=== PATIENT | female | born 1970 | race American Indian/Alaskan Native ===

== ENCOUNTER 2016-06-08 21:31 | Inpatient (IN) | payer MEDICARE ==
[2016-06-08] MEDS ORDERED: ADRENALIN ONE (21:32)
[2016-06-08] MEDS ORDERED: PROVENTIL IH ONE (21:38)
[2016-06-08] MEDS ORDERED: ATROVENT IH ONE (21:39)
[2016-06-08] MEDS ORDERED: ADRENALIN SUB-Q ONE (21:40)
[2016-06-08] MEDS ORDERED: MAGNESIUM SULFATE 2GM/50ML 2 GM in D5W 100 ML IV ONE ×2 (21:40→23:00)
[2016-06-08] MEDS ORDERED: NACL 0.9% 1000 ML 1,000 ML IV ONE (21:41)
--- NOTE | 2016-06-08 21:43 | Emergency Department Report ---
ED General Adult HPI - General Chief complaint: Dyspnea/Respdistress Stated complaint: RESPIRATORY DISTRESS Time Seen by Provider: 06/08/16 21:37 Source: patient, family, EMS (verbal report received from EMS. ems notes not available at time of chart dictation), RN notes reviewed, old records reviewed Limitations: Physical Limitation - History of Present Illness Initial comments: Past medical history includes asthma, GERD, anxiety, neuropathy, possible congestive heart failure. 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 Patient is well known to the internal medicine service at this hospital for multiple admissions in the past with exacerbations of COPD. She is apparently home oxygen dependent. Patient was recently admitted to the hospital on May 26 for COPD exacerbation. Patient is brought to the hospital today by EMS with respiratory distress. EMS reports shortness of breath. The patient complains of headache, shortness of breath, wheezing, nausea, vomiting, diarrhea. Symptoms started today. They' re constant. They were improved with BiPAP therapy, albuterol therapy. EMS gave magnesium and Solu-Medrol prior to arrival in the ER. Upon arrival to the ER, patient was sleepy, but following commands. No active nausea, vomiting or diarrhea was noted. She was wheezing very impressively, and was tachycardic. An ABG demonstrated hypoxemic type I respiratory failure. She received subcutaneous epinephrine 2. She received IV fluids, and her wheezing improved. She was on BiPAP initially, and is currently on a nonrebreather. Of note, patient had an MRI of her brain in February 2016, which demonstrated an Arnold-Chiari malformation, consistent with prior surgery. There were no acute findings noted. -: Gradual Location: head Radiation: other (as per hpi) Quality: constant Consistency: other (improved with meds) Improves with: medication, rest Worsens with: movement Associated Symptoms: cough, headaches, loss of appetite, nausea/vomiting, syncope, weakness - Related Data Home Medications Medication Instructions Recorded Confirmed Last Taken Gabapentin [Gralise] 800 mg PO DAILY 01/01/15 05/26/16 04/09/16 Sertraline [Zoloft] 100 mg PO QDAY 01/01/15 05/26/16 04/09/16 Trazodone HCl 150 mg PO DAILY 02/25/15 05/26/16 04/09/16 Previous Rx's Medication Instructions Recorded Last Taken Type ALPRAZolam [Xanax TAB] 1 mg PO TID PRN #30 tablet 03/01/16 03/16/16 Rx Butalb/Acetamin/Caff 50-325-40 2 tab PO Q4H PRN #30 tablet 03/01/16 04/09/16 Rx [Fioricet] Sucralfate [Carafate] 1 gm PO Q6HR #40 tablet 03/01/16 04/09/16 Rx oxyCODONE /ACETAMINOPHEN [Percocet 1 tab PO Q12H #30 tablet 03/01/16 04/09/16 Rx 5/325 mg] Amitriptyline [Elavil] 75 mg PO QHS #10 tablet 04/12/16 Unknown Rx ALBUTEROL Inhaler [ProAir HFA 2 puff IH QID PRN #1 inhalation 05/29/16 Unknown Rx Inhaler] Albuterol Sulfate [Ventolin HFA] 2 puff INHALATION Q4H PRN #1 05/29/16 Unknown Rx [email or web address] Budesonide [Pulmicort Respules] 0.5 mg IH Q12HRT #1 nebu 05/29/16 Unknown Rx Famotidine [Pepcid] 20 mg PO BID #14 tablet 05/29/16 Unknown Rx Levofloxacin [Levaquin TAB] 750 mg PO Q24HR #3 tablet 05/29/16 Unknown Rx Montelukast [Singulair] 10 mg PO QHS #30 tablet 05/29/16 Unknown Rx predniSONE [Deltasone] 20 mg PO QDAY #10 tablet 05/29/16 Unknown Rx Allergies Allergy/AdvReac Type Severity Reaction Status Date / Time latex Allergy Itching Verified 01/01/15 12:49 penicillin V [Penicillin V] Allergy Rash Verified 01/01/15 12:49 ED Review of Systems ROS: Stated complaint: RESPIRATORY DISTRESS Other details as noted in HPI Constitutional: malaise, weakness Eyes: denies: eye discharge ENT: denies: epistaxis Respiratory: shortness of breath Cardiovascular: dyspnea on exertion Gastrointestinal: nausea, vomiting Genitourinary: denies: urgency Musculoskeletal: as per HPI Skin: as per HPI Neurological: headache, weakness Psychiatric: anxiety ED Past Medical Hx - Past Medical History Hx Hypertension: Yes 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) Hx Heart Attack/AMI: Yes Hx Congestive Heart Failure: Yes Hx Diabetes: Yes Hx Deep Vein Thrombosis: No Hx Pulmonary Embolism: No Hx GERD: Yes Hx Liver Disease: No Hx Sickle Cell Disease: No Hx Arthritis: Yes Hx Headaches / Migraines: Yes Hx Seizures: No Hx Psychiatric Treatment: Yes (anxiety) Hx Asthma: Yes Hx COPD: Yes Hx Tuberculosis: No Hx Dementia: No Hx HIV: No Additional medical history: hiatal hernia, WPW s/p ablation - Surgical History Hx Coronary Stent: No Hx Open Heart Surgery: No Hx Pacemaker: No Hx Internal Defibrillator: No Hx Cholecystectomy: Yes Hx Appendectomy: No Hx Breast Surgery: No Additional Surgical History: x 2, hysterectomy. Cardiac ablation for WPW. brain surgery 08/2015 - Social History Smoking Status: Never Smoker - Medications Home Medications: Home Medications Medication Instructions Recorded Confirmed Last Taken Type Gabapentin [Gralise] 800 mg PO DAILY 01/01/15 05/26/16 04/09/16 History Sertraline [Zoloft] 100 mg PO QDAY 01/01/15 05/26/16 04/09/16 History Trazodone HCl 150 mg PO DAILY 02/25/15 05/26/16 04/09/16 History ALPRAZolam [Xanax TAB] 1 mg PO TID PRN #30 tablet 03/01/16 05/26/16 03/16/16 Rx Butalb/Acetamin/Caff 50-325-40 2 tab PO Q4H PRN #30 tablet 03/01/16 05/26/16 Rx [Fioricet] Sucralfate [Carafate] 1 gm PO Q6HR #40 tablet 03/01/16 05/26/16 04/09/16 Rx oxyCODONE /ACETAMINOPHEN [Percocet 1 tab PO Q12H #30 tablet 03/01/16 05/26/16 Rx 5/325 mg] Amitriptyline [Elavil] 75 mg PO QHS #10 tablet 04/12/16 05/26/16 Unknown Rx ALBUTEROL Inhaler [ProAir HFA 2 puff IH QID PRN #1 inhalation 05/29/16 Unknown Rx Inhaler] Albuterol Sulfate [Ventolin HFA] 2 puff INHALATION Q4H PRN #1 05/29/16 Unknown Rx [email or web address] Budesonide [Pulmicort Respules] 0.5 mg IH Q12HRT #1 nebu 05/29/16 Unknown Rx Famotidine [Pepcid] 20 mg PO BID #14 tablet 05/29/16 Unknown Rx Levofloxacin [Levaquin TAB] 750 mg PO Q24HR #3 tablet 05/29/16 Unknown Rx Montelukast [Singulair] 10 mg PO QHS #30 tablet 05/29/16 Unknown Rx predniSONE [Deltasone] 20 mg PO QDAY #10 tablet 05/29/16 Unknown Rx ED Physical Exam - General Limitations: Physical Limitation General appearance: alert, in distress, obese - Head Head exam: Present: atraumatic, normocephalic - Eye Eye exam: Present: normal appearance, EOMI - ENT ENT exam: Present: normal exam, normal orophraynx, mucous membranes moist - Neck Neck exam: Present: normal inspection, full ROM. Absent: tenderness, meningismus - Respiratory Respiratory exam: Present: respiratory distress, wheezes, rales, decreased breath sounds - Cardiovascular Cardiovascular Exam: Present: normal rhythm, tachycardia. Absent: systolic murmur, diastolic murmur, rubs, gallop - GI/Abdominal GI/Abdominal exam: Present: soft, normal bowel sounds. Absent: distended, tenderness, guarding, rebound, rigid, pulsatile mass - Extremities Exam Extremities exam: Present: normal inspection, full ROM, normal capillary refill. Absent: tenderness, pedal edema, joint swelling, calf tenderness - Back Exam Back exam: Present: normal inspection, full ROM. Absent: tenderness, CVA tenderness (R), CVA tenderness (L), muscle spasm, paraspinal tenderness, vertebral tenderness - Neurological Exam Neurological exam: Present: alert, other (Extraocular movements intact. Tongue midline. No facial droop. Facial sensation intact to light touch in the V1, V2 , V3 distribution bilaterally. 5 and 5 strength in 4 extremities.. Sensation is intact to light touch in 4 extremities.). Absent: motor sensory deficit - Psychiatric Psychiatric exam: Present: anxious - Skin Skin exam: Present: warm, dry, intact, normal color. Absent: rash ED Course Vital Signs 06/08/16 06/08/16 06/08/16 21:45 21:54 22:00 Temperature 98.7 F Pulse Rate 104 H 108 H Pulse Rate [ Bilateral Throughout] Respiratory 31 H 28 H 25 H Rate Respiratory Rate [Bilateral Throughout] Blood Pressure 146/104 144/91 Blood Pressure 146/104 [Left] O2 Sat by Pulse 100 100 100 Oximetry 06/08/16 23:15 Temperature Pulse Rate Pulse Rate [ 119 H Bilateral Throughout] Respiratory Rate Respiratory 26 H Rate [Bilateral Throughout] Blood Pressure Blood Pressure [Left] O2 Sat by Pulse Oximetry - Reevaluation(s) Reevaluation #1: 06/08/16 23:22 Differential diagnosis: COPD exacerbation, asthma exacerbation, pneumonia, acute coronary syndrome, gastroenteritis, urinary tract infection, migraine headache, tension headache, cluster headache Assessment and plan: 45-year-old female with type I hypoxemic respiratory failure, that required BiPAP therapy, subcutaneous epinephrine, albuterol, Atrovent, magnesium 2. She is protecting her airway, and her wheezing has improved. She still somewhat tachycardic. She will be admitted for airway monitoring, and albuterol therapy/nebulizer therapy. Chest x-ray is equivocal, therefore she will be given antibiotics. Blood cultures will be drawn. Case is discussed with the Hospital physician, Dr. Romero, who accepts the patient to his service. Of note, the patient has been in the ER for over an hour, I have not seen any active nausea or vomiting. Headache was nonspecific, she had essentially a negative MRI in 2016, but a noncontrast CT the head is ordered. Dr. Romero, the [facility] physician except for the patient to his service. Case is discussed with refrigerator assembler/critical care sound person, Dr. Miner. His group will evaluate the patient in the morning. 06/08/16 23:29 Reevaluation #2: 06/08/16 23:[address] scan from today and prior MRIs are evaluated by the neurosurgeon at [place] , Dr. Julian. He states patient can follow-up in the clinic in a few weeks. ED Medical Decision Making - Lab Data Result diagrams: 06/08/16 22:04 06/08/16 22:10 Vital Signs 06/08/16 06/08/16 06/08/16 21:45 21:54 22:00 Temperature 98.7 F Pulse Rate 104 H 108 H Pulse Rate [ Bilateral Throughout] Respiratory 31 H 28 H 25 H Rate Respiratory Rate [Bilateral Throughout] Blood Pressure 146/104 144/91 Blood Pressure 146/104 [Left] O2 Sat by Pulse 100 100 100 Oximetry 06/08/16 23:15 Temperature Pulse Rate Pulse Rate [ 119 H Bilateral Throughout] Respiratory Rate Respiratory 26 H Rate [Bilateral Throughout] Blood Pressure Blood Pressure [Left] O2 Sat by Pulse Oximetry Lab Results 06/08/16 06/08/16 06/08/16 Range/Units 22:04 22:04 22:04 WBC 11.6 H (4.5-11.0) K/mm3 RBC 4.53 (3.65-5.03) M/mm3 Hgb 12.3 (10.1-14.3) gm/dl Hct 37.7 (30.3-42.9) % MCV 83 (79-97) fl MCH 27 L (28-32) pg MCHC 33 (30-34) % RDW 16.7 H (13.2-15.2) % Plt Count 321 (140-440) K/mm3 Lymph % (Auto) 17.1 (13.4-35.0) % [place] % (Auto) 9.6 H (0.0-7.3) % Eos % (Auto) 2.1 (0.0-4.3) % Baso % (Auto) 0.4 (0.0-1.8) % Lymph # 2.0 (1.2-5.4) K/mm3 [place] # 1.1 H (0.0-0.8) K/mm3 Eos # 0.2 (0.0-0.4) K/mm3 Baso # 0.0 (0.0-0.1) K/mm3 Seg Neutrophils % 70.8 H (40.0-70.0) % Seg Neutrophils # 8.2 H (1.8-7.7) K/mm3 PT 12.2 (12.2-14.9) Sec. INR 0.91 (0.87-1.13) POC ABG pH (7.35-7.45) POC ABG pCO2 (35-45) POC ABG pO2 (80-105) POC ABG HCO3 POC ABG Total CO2 POC ABG O2 Sat POC ABG Base Excess FiO2 % Sodium (137-145) mmol/L Potassium (3.6-5.0) mmol/L Chloride (98-107) mmol/L Carbon Dioxide (22-30) mmol/L Anion Gap mmol/L BUN (7-17) mg/dL Creatinine (0.7-1.2) mg/dL Estimated GFR ml/min BUN/Creatinine Ratio % Glucose (65-100) mg/dL Lactic Acid 0.6 L (0.7-2.0) mmol/L Calcium (8.4-10.2) mg/dL Magnesium (1.7-2.3) mg/dL Total Bilirubin (0.1-1.2) mg/dL AST (5-40) units/L ALT (7-56) units/L Alkaline Phosphatase (35-129) units/L Troponin T (0.00-0.029) ng/mL Total Protein (6.3-8.2) g/dL Albumin (3.9-5) g/dL Albumin/Globulin Ratio % Lipase (13-60) units/L 06/08/16 06/08/16 Range/Units 22:10 22:48 WBC (4.5-11.0) K/mm3 RBC (3.65-5.03) M/mm3 Hgb (10.1-14.3) gm/dl Hct (30.3-42.9) % MCV (79-97) fl MCH (28-32) pg MCHC (30-34) % RDW (13.2-15.2) % Plt Count (140-440) K/mm3 Lymph % (Auto) (13.4-35.0) % [place] % (Auto) (0.0-7.3) % Eos % (Auto) (0.0-4.3) % Baso % (Auto) (0.0-1.8) % Lymph # (1.2-5.4) K/mm3 [place] # (0.0-0.8) K/mm3 Eos # (0.0-0.4) K/mm3 Baso # (0.0-0.1) K/mm3 Seg Neutrophils % (40.0-70.0) % Seg Neutrophils # (1.8-7.7) K/mm3 PT (12.2-14.9) Sec. INR (0.87-1.13) POC ABG pH 7.471 H (7.35-7.45) POC ABG pCO2 28.6 L (35-45) POC ABG pO2 41 L (80-105) POC ABG HCO3 20.9 POC ABG Total CO2 22 POC ABG O2 Sat 80 POC ABG Base Excess -3 FiO2 35 % Sodium 142 (137-145) mmol/L Potassium 3.5 L (3.6-5.0) mmol/L Chloride 104.3 (98-107) mmol/L Carbon Dioxide 21 L (22-30) mmol/L Anion Gap 20 mmol/L BUN 7 (7-17) mg/dL Creatinine 0.7 (0.7-1.2) mg/dL Estimated GFR > 60 ml/min BUN/Creatinine Ratio 10.00 % Glucose 124 H (65-100) mg/dL Lactic Acid (0.7-2.0) mmol/L Calcium 8.7 (8.4-10.2) mg/dL Magnesium 2.7 H (1.7-2.3) mg/dL Total Bilirubin 0.3 (0.1-1.2) mg/dL AST 25 (5-40) units/L ALT 36 (7-56) units/L Alkaline Phosphatase 95 (35-129) units/L Troponin T < 0.010 (0.00-0.029) ng/mL Total Protein 6.5 (6.3-8.2) g/dL Albumin 4.2 (3.9-5) g/dL Albumin/Globulin Ratio 1.8 % Lipase 22 (13-60) units/L - EKG Data When compared to previous EKG there are: no significant change 06/08/16 23:25 Sinus tachycardia, 104 beats per minutes, prolonged QTC at 470 ms, not consistent with STEMI, appears unchanged compared to prior EKG from 2017 - Radiology Data Radiology results: report reviewed, image reviewed interpreted by me: Cardiomegaly is demonstrated on the chest x-ray, right lower lobe atelectasis. Noncontrast CT scan of the head: Status post occipital craniotomy. There is no evidence of hemorrhage, infarction or mass. High attenuation is seen peripherally throughout the brain, particularly in the right parietal occipital region. There is no evidence of hemorrhage, infarction or mass. Patient has undergone decompression craniotomy. Artifact limits evaluation of the foramen magnum, but considered continued mild crowding of the foramen magnum with the tonsils surrounding the medulla and decreased CSF attenuation in this area. Findings are stable to slightly increased compared to prior examination. Impression: Status post decompression craniotomy for known Chiari malformation. Consider mild crowding of the foramen magnum, with the tonsils surrounding the medulla and decreased CSF attenuation in this region. Findings may be stable to slightly increased compared to the prior examination. Artifact limits evaluation in this region. Critical Care Time: Yes Critical care time in (mins) excluding proc time.: 35 Critical care attestation.: If time is entered above; I have spent that time in minutes in the direct care of this critically ill patient, excluding procedure time. Critical Care Time: Critical care time includes multiple bedside evaluations, interpretation of laboratory studies, radiology studies, denies managing a patient with type I hypoxemic respiratory failure requiring initiation of noninvasive ventilation, and aggressive medical therapy. This excludes procedure time. ED Disposition Clinical Impression: Cephalalgia, Acute hypoxemic respiratory failure Disposition: OP ADMITTED IP TO THIS HOSP Is pt being admited?: Yes Does the pt Need Aspirin: Yes Condition: Stable Referrals: DR KINDRA [Other] - 3-5 Days
[2016-06-08] MEDS ORDERED: MAGNESIUM SULFATE 2GM/50ML 50 ML IV ONE (22:01)
[2016-06-08] MEDS ORDERED: ZOFRAN IV ONE (22:01)
[2016-06-08] MEDS ORDERED: ADRENALINE P/F SUB-Q ONE (22:07)
[2016-06-08] MEDS ORDERED: REGLAN IV ONE (22:07)
[2016-06-08 22:34] LABS: Basophils % (Auto) 0.4 % (0.0-1.8); Eosinophils % (Auto) 2.1 % (0.0-4.3); Hematocrit 37.7 % (30.3-42.9); Hemoglobin 12.3 gm/dl (10.1-14.3); Mean Corpuscular HGB Conc 33 % (30-34); Mean Corpuscular Hemoglobin 27 pg (28-32); Mean Corpuscular Volume 83 fl (79-97); Platelet Count 321 K/mm3 (140-440); Red Blood Count 4.53 M/mm3 (3.65-5.03); Red Cell Distribution Width 16.7 % (13.2-15.2); White Blood Count 11.6 K/mm3 (4.5-11.0)
[2016-06-08 22:44] LABS: INR 0.91 (0.87-1.13)
[2016-06-08 22:55] LABS: Alanine Aminotransferase 36 units/L (7-56); Albumin 4.2 g/dL (3.9-5); Albumin/Globulin Ratio 1.8 %; Alkaline Phosphatase 95 units/L (35-129); Bilirubin,Total 0.3 mg/dL (0.1-1.2); Blood Urea Nitrogen 7 mg/dL (7-17); Calcium 8.7 mg/dL (8.4-10.2); Carbon Dioxide 21 mmol/L (22-30); Chloride 104.3 mmol/L (98-107); Glucose 124 mg/dL (65-100); Lipase 22 units/L (13-60); Magnesium 2.7 mg/dL (1.7-2.3); Potassium 3.5 mmol/L (3.6-5.0); Sodium 142 mmol/L (137-145); Total Protein 6.5 g/dL (6.3-8.2)
[2016-06-08 22:55] LABS: ISTAT Base Excess -3; ISTAT HCO3 20.9; ISTAT PCO2 28.6 (35-45); ISTAT PH 7.471 (7.35-7.45); ISTAT PO2 41 (80-105); ISTAT SO2 80; ISTAT TCO2 22
[2016-06-08 22:57] LABS: Anion Gap 20 mmol/L
[2016-06-08] MEDS ORDERED: LEVAQUIN 750MG/150ML 150 ML IV ONE (23:24)
[2016-06-08] MEDS ORDERED: BABY ASPIRIN PO ONE (23:26)
--- NOTE | 2016-06-08 23:27 | Cat Scan Report ---
FINAL REPORT PROCEDURE: CT HEAD/BRAIN WO CON TECHNIQUE: Computerized tomography of the head was performed without contrast material. HISTORY: Headache. COMPARISON: CT scan of the brain dated 02/26/2016. MRI of the brain dated 02/27/2016. Removed for removed FINDINGS: Skull and scalp: Occipital craniotomy. Paranasal sinuses: Normal. Ventricles and subarachnoid spaces: Normal. Cerebrum: No evidence of hemorrhage, acute infarction or mass. High attenuation seen peripherally throughout the brain, particularly the right parieto-occipital region (image 24 series 4). Cerebellum and brainstem: No evidence of hemorrhage, acute infarction or mass. Patient has undergone decompression craniotomy. Artifact limits evaluation of the foramen magnum, but consider continued mild crowding of the foramen magnum with the tonsils surrounding the medulla and decrease CSF attenuation in this area. Findings stable to slightly increased compared to prior examination. Vasculature: Normal. Comments: None. IMPRESSION: Decompression craniotomy for known Chiari malformation. Consider continued mild crowding of the foramina magnum, with the tonsils surrounding the medulla and decreased CSF attenuation this region. Findings may be stable to slightly increased compared to prior exam. Artifact limits evaluation in this region. Additionally, there is moderate peripheral high attenuation artifact from motion with limits evaluation and decreases sensitivity for subtle bleeds. Recommend repeat evaluation or MRI of the brain for further characterization if patient has no contraindication MRI.
[2016-06-08 23:50] LABS: Bilirubin,Urine NEG (Negative); Blood,Urine NEG (Negative); Ketones,Urine TR mg/dL (Negative); Leukocyte Esterase,Urine NEG (Negative); Mucus,Urine FEW /HPF; Nitrite,Urine NEG (Negative); Protein,Urine <15 mg/dL mg/dL (Negative); Urobilinogen,Urine < 2.0 mg/dL (<2.0); WBC,Urine < 1.0 /HPF (0.0-6.0)
--- NOTE | 2016-06-08 23:51 | XRay Report ---
FINAL REPORT PROCEDURE: XR CHEST 1V AP TECHNIQUE: Chest radiograph anteroposterior view. CPT 52895 HISTORY: Dyspnea. COMPARISON: [employer] Operator film from CTA of the chest dated 03/17/2016. FINDINGS: Heart: The heart size is top-normal. Mediastinum/Vessels: Mild central vascular congestion. Lungs/Pleural space: Mild bibasilar opacities. Bony thorax: Moderate levoscoliosis. Mild degenerative changes of the spine. Life support devices: Overlying monitoring leads. IMPRESSION: Heart size top-normal. Mild central vascular congestion with probable bibasilar atelectasis. Cannot exclude pneumonitis. Consider followup PA and lateral chest radiograph to begin further characterization if there is continued clinical concern.
--- NOTE | 2016-06-08 23:59 | History and Physical Report ---
History of Present Illness Date of examination: 06/08/16 Date of admission: 06/08/16 Chief complaint: sob History of present illness: 45-year-old -[place] obese female patient well known to our services with multiple admissions in the past for acute exacerbation of asthma/COPD home oxygen dependent, presented to the emergency room with a chief complaint of shortness of breath for the past 2 days. Patient was most recently hospitalized and discharged for the same on 05/26/2016. Patient states she was diagnosed with asthma at age 18. Patient also complains of some vague chest congestion and productive cough with white sputum as well as diffuse wheezes. Patient denies nausea vomiting or abdominal pain, complains of mild headache secondary to her migraines. Patient denies any history of intubation secondary to asthma exacerbation. No history of fever or urinary symptoms. No chest pain. No fever or chills. Past History Past Medical History: COPD, diabetes, heart failure, hypertension, hyperlipidemia Past Surgical History: cholecystectomy, , Other (ablation WPW syndrome) Social history: no significant social history Family history: no significant family history Medications and Allergies Allergies Allergy/AdvReac Type Severity Reaction Status Date / Time latex Allergy Itching Verified 01/01/15 12:49 penicillin V [Penicillin V] Allergy Rash Verified 01/01/15 12:49 Home Medications Medication Instructions Recorded Confirmed Last Taken Type Gabapentin [Gralise] 800 mg PO DAILY 01/01/15 05/26/16 04/09/16 History Sertraline [Zoloft] 100 mg PO QDAY 01/01/15 05/26/16 04/09/16 History Trazodone HCl 150 mg PO DAILY 02/25/15 05/26/16 04/09/16 History ALPRAZolam [Xanax TAB] 1 mg PO TID PRN #30 tablet 03/01/16 05/26/16 03/16/16 Rx Butalb/Acetamin/Caff 50-325-40 2 tab PO Q4H PRN #30 tablet 03/01/16 05/26/16 Rx [Fioricet] Sucralfate [Carafate] 1 gm PO Q6HR #40 tablet 03/01/16 05/26/16 04/09/16 Rx oxyCODONE /ACETAMINOPHEN [Percocet 1 tab PO Q12H #30 tablet 03/01/16 05/26/16 Rx 5/325 mg] Amitriptyline [Elavil] 75 mg PO QHS #10 tablet 04/12/16 05/26/16 Unknown Rx ALBUTEROL Inhaler [ProAir HFA 2 puff IH QID PRN #1 inhalation 05/29/16 Unknown Rx Inhaler] Albuterol Sulfate [Ventolin HFA] 2 puff INHALATION Q4H PRN #1 05/29/16 Unknown Rx hfa.aer.ad Budesonide [Pulmicort Respules] 0.5 mg IH Q12HRT #1 nebu 05/29/16 Unknown Rx Famotidine [Pepcid] 20 mg PO BID #14 tablet 05/29/16 Unknown Rx Levofloxacin [Levaquin TAB] 750 mg PO Q24HR #3 tablet 05/29/16 Unknown Rx Montelukast [Singulair] 10 mg PO QHS #30 tablet 05/29/16 Unknown Rx predniSONE [Deltasone] 20 mg PO QDAY #10 tablet 05/29/16 Unknown Rx Active Meds: Active Medications Magnesium Sulfate 2 gm/ (Dextrose) 150 mls @ 75 mls/hr IV ONCE.ED ONE Stop: 06/09/16 00:59 Levofloxacin/Dextrose (Levaquin 750mg/150ml) 150 mls @ 100 mls/hr IV ONCE ONE Stop: 06/09/16 00:53 Review of Systems All systems: negative Exam - Constitutional Vitals: Temp Pulse Resp BP Pulse Ox 98.7 F 119 H 26 H 144/91 100 06/08/16 21:54 06/08/16 23:15 06/08/16 23:15 06/08/16 22:00 06/08/16 22:00 General appearance: Present: no acute distress, well-nourished - EENT Eyes: Present: PERRL ENT: hearing intact, clear oral mucosa - Neck Neck: Present: supple, normal ROM - Respiratory Respiratory effort: normal Respiratory: bilateral: diminished, wheezing (extensive) - Cardiovascular Heart Sounds: Present: S1 & S2. Absent: rub, click - Extremities Extremities: pulses symmetrical, No edema Peripheral Pulses: within normal limits - Abdominal General gastrointestinal: Present: soft, non-tender, non-distended, normal bowel sounds Female genitourinary: Present: normal - Integumentary Integumentary: Present: clear, warm, dry - Musculoskeletal Musculoskeletal: gait normal, strength equal bilaterally - Psychiatric Psychiatric: appropriate mood/affect, intact judgment & insight - Neurologic Neurologic: CNII-XII intact, moves all extremities Results - Labs CBC & Chem 7: 06/08/16 22:04 06/08/16 22:10 Labs: Laboratory Last Values WBC 11.6 K/mm3 (4.5-11.0) H 06/08/16 22:04 RBC 4.53 M/mm3 (3.65-5.03) 06/08/16 22:04 Hgb 12.3 gm/dl (10.1-14.3) 06/08/16 22:04 Hct 37.7 % (30.3-42.9) 06/08/16 22:04 MCV 83 fl (79-97) 06/08/16 22:04 MCH 27 pg (28-32) L 06/08/16 22:04 MCHC 33 % (30-34) 06/08/16 22:04 RDW 16.7 % (13.2-15.2) H 06/08/16 22:04 Plt Count 321 K/mm3 (140-440) 06/08/16 22:04 Lymph % (Auto) 17.1 % (13.4-35.0) 06/08/16 22:04 Campbell % (Auto) 9.6 % (0.0-7.3) H 06/08/16 22:04 Eos % (Auto) 2.1 % (0.0-4.3) 06/08/16 22:04 Baso % (Auto) 0.4 % (0.0-1.8) 06/08/16 22:04 Lymph # 2.0 K/mm3 (1.2-5.4) 06/08/16 22:04 Campbell # 1.1 K/mm3 (0.0-0.8) H 06/08/16 22:04 Eos # 0.2 K/mm3 (0.0-0.4) 06/08/16 22:04 Baso # 0.0 K/mm3 (0.0-0.1) 06/08/16 22:04 Seg Neutrophils % 70.8 % (40.0-70.0) H 06/08/16 22:04 Seg Neutrophils # 8.2 K/mm3 (1.8-7.7) H 06/08/16 22:04 PT 12.2 Sec. (12.2-14.9) 06/08/16 22:04 INR 0.91 (0.87-1.13) 06/08/16 22:04 POC ABG pH 7.471 (7.35-7.45) H 06/08/16 22:48 POC ABG pCO2 28.6 (35-45) L 06/08/16 22:48 POC ABG pO2 41 (80-105) L 06/08/16 22:48 POC ABG HCO3 20.9 06/08/16 22:48 POC ABG Total CO2 22 06/08/16 22:48 POC ABG O2 Sat 80 06/08/16 22:48 POC ABG Base Excess -3 06/08/16 22:48 FiO2 35 % 06/08/16 22:48 Sodium 142 mmol/L (137-145) 06/08/16 22:10 Potassium 3.5 mmol/L (3.6-5.0) L 06/08/16 22:10 Chloride 104.3 mmol/L (98-107) 06/08/16 22:10 Carbon Dioxide 21 mmol/L (22-30) L 06/08/16 22:10 Anion Gap 20 mmol/L 06/08/16 22:10 BUN 7 mg/dL (7-17) 06/08/16 22:10 Creatinine 0.7 mg/dL (0.7-1.2) 06/08/16 22:10 Estimated GFR > 60 ml/min 06/08/16 22:10 BUN/Creatinine Ratio 10.00 % 06/08/16 22:10 Glucose 124 mg/dL (65-100) H 06/08/16 22:10 Lactic Acid 0.6 mmol/L (0.7-2.0) L 06/08/16 22:04 Calcium 8.7 mg/dL (8.4-10.2) 06/08/16 22:10 Magnesium 2.7 mg/dL (1.7-2.3) H 06/08/16 22:10 Total Bilirubin 0.3 mg/dL (0.1-1.2) 06/08/16 22:10 AST 25 units/L (5-40) 06/08/16 22:10 ALT 36 units/L (7-56) 06/08/16 22:10 Alkaline Phosphatase 95 units/L (35-129) 06/08/16 22:10 Troponin T < 0.010 ng/mL (0.00-0.029) 06/08/16 22:10 Total Protein 6.5 g/dL (6.3-8.2) 06/08/16 22:10 Albumin 4.2 g/dL (3.9-5) 06/08/16 22:10 Albumin/Globulin Ratio 1.8 % 06/08/16 22:10 Lipase 22 units/L (13-60) 06/08/16 22:10 Urine Bilirubin Neg (Negative) 06/08/16 23:31 Urine RBC (Auto) 1.0 /HPF (0.0-6.0) 06/08/16 23:31 U Epithel Cells (Auto) 2.0 /HPF (0-13.0) 06/08/16 23:31 Assessment and Plan Assessment and plan: 1. Acute hypoxic respiratory failure. Patient will be placed on BiPAP. Patient has a high propensity for decompensation and therefore will be monitored in the ICU tonight. Continue to follow ABG closely. 2. Acute exacerbation of asthma/COPD. the patient will be placed on the asthma pathway. We will treat with Nebulizers, IV steroids, IV antibiotics, inhalation steroids Nasal cannula oxygen titrated to O2 sats more than 90%, BiPAP as needed 3. Hypertension. Resume home antihypertensives and when necessary medications 4. History of migraine headache Supportive care, resume home medications 5. Peripheral neuropathy Continue gabapentin and supportive care 6. History of depression Continue Zoloft and Xanax as needed 7. DVT prophylaxis with Lovenox
[2016-06-09] MEDS ORDERED: TYLENOL PO PRN (00:04)
[2016-06-09] MEDS ORDERED: MILK OF MAGNESIA PO PRN (00:04)
[2016-06-09] MEDS ORDERED: DULCOLAX PR PRN (00:04)
--- NOTE | 2016-06-09 00:49 | Admit Criteria Form ---
Admission Criteria Documentation: RESPIRATORY FAILURE GRG Clinical Indications for Admission to Inpatient Care (Place 'X' for any and all applicable criteria): Hospital admission is needed for appropriate care of the patient because of acute respiratory failure or insufficiency as indicated by ANY ONE of the following(1)(2)(3)(4)(5)(6)(7)(8): [ X]I. Mechanical ventilation needed (acute invasive or noninvasive) [ ]II. Severe ventilation deficit as indicated by ANY ONE of the following (9) [ ]a) Respiratory acidosis (pH less than 7.32 and partial pressure of carbon dioxide greater than 40 mm Hg (5.3 kPa)) [ ]b) Partial pressure of carbon dioxide greater than 44 mm Hg (5.9 kPa ) (new) [ ]c) Airflow measurements less than 25% of predicted (eg, peak expiratory flow rate less than 100 L/minute) [ ]d) Forced vital capacity less than 15 mL/kg of ideal body weight, or 50% decrease in vital capacity from baseline [ ]III. Noncardiac pulmonary edema not resolving with rapid emergency treatment (8) [ ]IV. Severe respiratory distress as indicated by ANY ONE of the following: [ ]a) Severe tachypnea (respiratory rate greater than 30, greater than 45 for 6-month-old, greater than 60 for ) [ ]b) Severe hypoxemia (partial pressure of oxygen less than 50 mm Hg ( 6.7 kPa) on greater than 50% oxygen or partial pressure of oxygen to FIO2 ratio less than 200) [ ]c) Mental status deterioration from respiratory disease [ ]V. Airway obstruction or inadequate protection [A](10)(11) The original [employer] content created by [employer] has been revised. The portions of the content which have been revised are identified through the use of italic text or in bold, and [employer] has neither reviewed nor approved the modified material. All other unmodified content is copyright [employer] Please see references footnoted in the original [employer] edition 2016 Admission Criteria Met: Yes
[2016-06-09] MEDS ORDERED: LEVAQUIN IV ONE (00:54)
[2016-06-09] MEDS ORDERED: LEVAQUIN 750MG/150ML 150 ML IV ONE (00:56)
[2016-06-09] MEDS ORDERED: TORADOL IV ONE ×2 (03:02→11:00)
[2016-06-09] MEDS ORDERED: TORADOL ONE (03:03)
[2016-06-09] MEDS ORDERED: ZOFRAN ONE (03:35)
[2016-06-09] MEDS: ZOFRAN IV PRN ×4 (03:39→17:55)
--- NOTE | 2016-06-09 03:41 | Cat Scan Report ---
FINAL REPORT PROCEDURE: CT ANGIO CHEST TECHNIQUE: Computerized axial tomographic angiography of the chest and pulmonary arteries was performed after the IV injection of iodinated nonionic contrast. The image data was postprocessed using maximum intensity projection (MIP) and 2-dimensional multiplanar reformatted (MPR) techniques. The examination is specifically tailored to the evaluation of the pulmonary arteries per clinical request. HISTORY: Dyspnea. Shortness of breath. Attention for pulmonary embolus. Short of breath 786.09, chest pain 786.50 COMPARISON: Comparison is made to prior chest CT exams of March 17, 2016 and March 07, 2016. FINDINGS: Heart and pericardium: Normal. Thoracic aorta: Normal. Pulmonary vasculature: Normal. No pulmonary emboli. Lymph nodes: No enlarged thoracic lymph nodes. Lungs: There is mild patchy atelectasis or less likely minimal infiltrate in left lung base. Lungs appear clear otherwise.. Pleural space: There is no CT evidence of new pneumothorax.. Musculoskeletal structures: There is severe scoliotic curvature of the upper thoracic spine to the left. Upper abdominal structures: Moderate fatty infiltration of the liver noted. Heterogenous spleen is likely due to contrast flux. IMPRESSION: 1. There is no CT evidence of pulmonary embolus. 2. There is no CT evidence of thoracic aortic dissection. 3. Mild patchy atelectasis or minimal infiltrate in left lung base. The lungs are clear otherwise. 4. Severe scoliotic curvature of upper thoracic spine to the left. 5. Moderate fatty infiltration liver
[2016-06-09] MEDS: DUONEB 0.5 MG-3 MG/3 ML SOLN IH SCH ×4 (07:23→21:42)
[2016-06-09] MEDS: NORCO 5/325 PO PRN ×3 (07:50→23:26)
[2016-06-09 09:08] LABS: Hematocrit 35.7 % (30.3-42.9); Hemoglobin 11.5 gm/dl (10.1-14.3); Mean Corpuscular HGB Conc 32 % (30-34); Mean Corpuscular Hemoglobin 28 pg (28-32); Mean Corpuscular Volume 86 fl (79-97); Platelet Count 299 K/mm3 (140-440); Red Blood Count 4.17 M/mm3 (3.65-5.03); Red Cell Distribution Width 17.4 % (13.2-15.2); White Blood Count 13.6 K/mm3 (4.5-11.0)
[2016-06-09 09:31] LABS: Alanine Aminotransferase 38 units/L (7-56); Albumin 3.8 g/dL (3.9-5); Albumin/Globulin Ratio 1.3 %; Alkaline Phosphatase 84 units/L (35-129); Anion Gap 22 mmol/L; BUN/Creatinine Ratio 8.75; Bilirubin,Total 0.2 mg/dL (0.1-1.2); Blood Urea Nitrogen 7 mg/dL (7-17); Calcium 8.9 mg/dL (8.4-10.2); Carbon Dioxide 20 mmol/L (22-30); Chloride 102.4 mmol/L (98-107); Glucose 170 mg/dL (65-100); Sodium 140 mmol/L (137-145); Total Protein 6.8 g/dL (6.3-8.2)
--- NOTE | 2016-06-09 10:00 | Consultation ---
History of Present Illness Consult date: 06/09/16 Requesting physician: KIMBERLY KWAN Reason for consult: asthma History of present illness: 45 y/o obese, female, with likely asthma admitted with acute respiratory failure. Last seen by our group on her last admission. Ed called and requested ICU monitoring given work of breathing. Patient now weaned down to nasal cannula and in no distress. Per patient she ran out of inhaler therapy as well as pain meds. Current asleep but easily arousable. No family at bedside. Wants something for pain. Past History Past Medical History: COPD, diabetes, heart failure, hypertension, hyperlipidemia Past Surgical History: cholecystectomy, , Other (ablation WPW syndrome) Social history: no significant social history Family history: no significant family history Medications and Allergies Allergies Allergy/AdvReac Type Severity Reaction Status Date / Time latex Allergy Itching Verified 01/01/15 12:49 penicillin V [Penicillin V] Allergy Rash Verified 01/01/15 12:49 Home Medications Medication Instructions Recorded Confirmed Last Taken Type Sertraline [Zoloft] 100 mg PO QDAY 01/01/15 06/09/16 04/09/16 History ALPRAZolam [Xanax TAB] 1 mg PO TID PRN #30 tablet 03/01/16 06/09/16 03/16/16 Rx Amitriptyline [Elavil] 75 mg PO QHS #10 tablet 04/12/16 06/09/16 Unknown Rx ALBUTEROL Inhaler [ProAir HFA 2 puff IH QID PRN #1 inhalation 05/29/16 06/09/16 Unknown Rx Inhaler] Albuterol Sulfate [Ventolin HFA] 2 puff INHALATION Q4H PRN #1 05/29/16 06/09/16 Unknown Rx hfa.aer.ad Montelukast [Singulair] 10 mg PO QHS #30 tablet 05/29/16 06/09/16 Unknown Rx predniSONE [Deltasone] 20 mg PO QDAY #10 tablet 05/29/16 06/09/16 Unknown Rx Cyclobenzaprine [Flexeril] 10 mg PO TID PRN 06/09/16 06/09/16 Unknown History Dexlansoprazole [Dexilant] 60 mg PO QDAY 06/09/16 06/09/16 Unknown History Famotidine [Pepcid] 20 mg PO BID PRN 06/09/16 06/09/16 Unknown History Lisinopril [Zestril] 20 mg PO QDAY 06/09/16 06/09/16 Unknown History Pantoprazole [Protonix] 40 mg PO QDAY 06/09/16 06/09/16 Unknown History Rosuvastatin Calcium 20 mg PO QDAY 06/09/16 06/09/16 Unknown History amLODIPine [Norvasc] 10 mg PO DAILY 06/09/16 06/09/16 Unknown History busPIRone [Buspar] 15 mg PO BID 06/09/16 06/09/16 Unknown History glipiZIDE [glipiZIDE ER] 5 mg PO QAM 06/09/16 06/09/16 Unknown History Active Meds: Active Medications Acetaminophen (Tylenol) 650 mg PO Q4H PRN PRN Reason: Pain MILD(1-3)/Fever >100.5/DILLON Acetaminophen/Hydrocodone Bitart ([place] 5/325) 2 each PO Q6H PRN PRN Reason: Pain, Moderate (4-6) Albuterol/Ipratropium (Duoneb 0.5 Mg-3 Mg/3 Ml Soln) 1 ampul IH Q6HRT [facility] Last Admin: 06/09/16 07:33 Dose: 1 ampul Bisacodyl (Dulcolax) 10 mg OK QDAY PRN PRN Reason: Constipation unrelieved by MOM Enoxaparin Sodium (Lovenox) 40 mg SUB-Q QDAY [facility] Magnesium Hydroxide (Milk Of Magnesia) 30 ml PO Q4H PRN PRN Reason: Constipation Methylprednisolone Sodium Succinate (Solu-Medrol) 80 mg IV Q8HR [facility] Ondansetron HCl (Zofran) 4 mg IV Q8H PRN PRN Reason: N/V unrelieved by Reglan Last Admin: 06/09/16 07:50 Dose: 4 mg Review of Systems All systems: negative Physical Examination Vital signs: Vital Signs Resp 24 06/08/16 21:38 General appearance: no acute distress, alert, other (obese) ENT: oropharynx moist Neck: supple Ascultation: Bilateral: clear, diminished breath sounds Percussion: Bilateral: not dull Tactile fremitus: Bilateral: normal Cardiovascular: regular rate and rhythm Gastrointestinal: normoactive bowel sounds, soft, non-tender Integumentary: normal Extremities: no cyanosis normal mental status, non-focal exam Results - Laboratory Findings CBC and BMP: 06/09/16 08:47 06/09/16 08:47 ABG POC ABG pH 7.471 (7.35-7.45) H 06/08/16 22:48 POC ABG pCO2 28.6 (35-45) L 06/08/16 22:48 POC ABG pO2 41 (80-105) L 06/08/16 22:48 POC ABG HCO3 20.9 06/08/16 22:48 POC ABG Total CO2 22 06/08/16 22:48 POC ABG O2 Sat 80 06/08/16 22:48 PT/INR, D-dimer PT 12.2 Sec. (12.2-14.9) 06/08/16 22:04 INR 0.91 (0.87-1.13) 06/08/16 22:04 D-Dimer 505.39 ng/mlDDU (0-234) H 06/08/16 23:42 Abnormal lab findings: Abnormal Labs 06/09/16 06/09/16 08:47 08:47 WBC 13.6 H RDW 17.4 H Carbon Dioxide 20 L Glucose 170 H Albumin 3.8 L - Diagnostic Findings Chest x-ray: report reviewed CT scan - chest: report reviewed Assessment and Plan 45 y/o obese female with likely asthma, admitted with acute respiratory failure requiring bipap therapy and exacerbation of asthma, secondary to lack of medication. 1. Agree with steroids, will halve dose tomorrow 2. Add pulmicort and brovana BID 3. PRN nebs as well 4. Supplemental O2, wean for sats >88% 5. Stable for transfer out of ICU
[2016-06-09 10:24] LABS: Basophils % (Manual) 0 % (0.0-1.8); Blastocytes % (Manual) 0 %; Eosinophils % (Manual) 0 % (0.0-4.3)
[2016-06-09 10:25] LABS: Diff Status Complete; RBC Morphology Normal
[2016-06-09] MEDS: LOVENOX SUB-Q SCH (10:43)
[2016-06-09] MEDS: NOVOLOG SUB-Q SCH ×2 (16:30→23:23)
[2016-06-09] MEDS: BROVANA NEBU IH SCH (20:16)
[2016-06-09] MEDS: PULMICORT IH SCH (20:17)
[2016-06-10] MEDS: DUONEB 0.5 MG-3 MG/3 ML SOLN IH SCH ×4 (02:43→20:58)
[2016-06-10 06:31] LABS: Basophils % (Auto) 0.1 % (0.0-1.8); Hematocrit 34.2 % (30.3-42.9); Hemoglobin 11.1 gm/dl (10.1-14.3); Mean Corpuscular HGB Conc 33 % (30-34); Mean Corpuscular Hemoglobin 28 pg (28-32); Mean Corpuscular Volume 85 fl (79-97); Platelet Count 317 K/mm3 (140-440); Red Blood Count 4.04 M/mm3 (3.65-5.03); Red Cell Distribution Width 17.4 % (13.2-15.2); White Blood Count 9.7 K/mm3 (4.5-11.0)
[2016-06-10 06:37] LABS: Anion Gap 22 mmol/L; BUN/Creatinine Ratio 11.25; Blood Urea Nitrogen 9 mg/dL (7-17); Calcium 8.9 mg/dL (8.4-10.2); Carbon Dioxide 21 mmol/L (22-30); Chloride 100.8 mmol/L (98-107); Glucose 259 mg/dL (65-100); Potassium 4.2 mmol/L (3.6-5.0); Sodium 140 mmol/L (137-145)
[2016-06-10] MEDS: BROVANA NEBU IH SCH ×2 (08:42→21:06)
[2016-06-10] MEDS: PULMICORT IH SCH ×2 (08:42→21:06)
[2016-06-10] MEDS: ZOFRAN IV PRN ×3 (08:45→22:40)
[2016-06-10] MEDS: NOVOLOG SUB-Q SCH ×4 (09:23→22:00)
[2016-06-10] MEDS: LOVENOX SUB-Q SCH (09:24)
[2016-06-10] MEDS ORDERED: FLEXERIL PO PRN (10:37)
[2016-06-10] MEDS ORDERED: PEPCID PO PRN (10:37)
[2016-06-10] MEDS ORDERED: NON-FORMULARY (Rosuvastatin Calcium [Rosuvastatin Calcium] 20 MG) PO SCH (10:45)
--- NOTE | 2016-06-10 15:59 | Progress Note ---
Assessment and Plan 45 y/o obese female with likely asthma, admitted with acute respiratory failure requiring bipap therapy and exacerbation of asthma, secondary to lack of medication. 1. Agree with steroids, Dose already changed to 40q8 2. Continue pulmicort and brovana BID 3. PRN nebs as well 4. Supplemental O2, wean for sats >88% 5. Reviewed ABG. PaO2 was low at 41 but not hypercapnic. Not sure if this would qualify her for home bipap therapy prior to sleep study. Suggest CM consult to see if this is feasible. If not, will attempt to wean off night time positive pressure. Subjective Date of service: 06/10/16 Interval history: No acute events overnight. Per patient very nauseated and in pain. Remainder is negative. Per patient has been wearing CPAP nightly. Per patient was suppose to have sleep study but has not had one. Objective Vital Signs - 12hr 06/10/16 06/10/16 06/10/16 05:36 07:30 08:43 Temperature 98.5 F Pulse Rate Pulse Rate [ 79 Bilateral Throughout] Pulse Rate [ 103 H Left] Respiratory 22 Rate Respiratory 20 Rate [Bilateral Throughout] Respiratory Rate [Medial Abdomen] Blood Pressure 170/110 O2 Sat by Pulse 96 92 Oximetry 06/10/16 06/10/16 06/10/16 08:47 09:01 09:04 Temperature Pulse Rate 93 H Pulse Rate [ 92 H Bilateral Throughout] Pulse Rate [ Left] Respiratory 20 Rate Respiratory 23 Rate [Bilateral Throughout] Respiratory Rate [Medial Abdomen] Blood Pressure O2 Sat by Pulse 98 98 Oximetry 06/10/16 06/10/16 06/10/16 10:00 12:20 15:32 Temperature 97.9 F Pulse Rate Pulse Rate [ 94 H Bilateral Throughout] Pulse Rate [ 78 Left] Respiratory 18 Rate Respiratory 20 Rate [Bilateral Throughout] Respiratory 20 Rate [Medial Abdomen] Blood Pressure 153/76 O2 Sat by Pulse 100 Oximetry 06/10/16 06/10/16 15:34 15:46 Temperature Pulse Rate Pulse Rate [ 89 Bilateral Throughout] Pulse Rate [ Left] Respiratory Rate Respiratory 18 Rate [Bilateral Throughout] Respiratory Rate [Medial Abdomen] Blood Pressure O2 Sat by Pulse 100 Oximetry Constitutional: no acute distress, alert, other (obese) ENT: oropharynx moist Neck: supple Ascultation: Bilateral: clear, diminished breath sounds Percussion: Bilateral: not dull Tactile fremitus: Bilateral: normal Cardiovascular: regular rate and rhythm Gastrointestinal: normoactive bowel sounds, soft, non-tender Integumentary: normal Extremities: no cyanosis Neurologic: normal mental status, non-focal exam CBC and BMP: 06/10/16 05:25 06/10/16 05:25 ABG, PT/INR, D-dimer: ABG POC ABG pH 7.471 (7.35-7.45) H 06/08/16 22:48 POC ABG pCO2 28.6 (35-45) L 06/08/16 22:48 POC ABG pO2 41 (80-105) L 06/08/16 22:48 POC ABG HCO3 20.9 06/08/16 22:48 POC ABG Total CO2 22 06/08/16 22:48 POC ABG O2 Sat 80 06/08/16 22:48 PT/INR, D-dimer PT 12.2 Sec. (12.2-14.9) 06/08/16 22:04 INR 0.91 (0.87-1.13) 06/08/16 22:04 D-Dimer 505.39 ng/mlDDU (0-234) H 06/08/16 23:42 Abnormal lab findings: Abnormal Labs 06/09/16 06/09/16 06/09/16 08:15 08:47 08:47 WBC 13.6 H RDW 17.4 H Lymph % (Auto) Lymph # Seg Neutrophils % Seg Neuts % (Manual) 93.0 H Lymphocytes % (Manual) 4.0 L Seg Neutrophils # Seg Neutrophils # Man 12.6 H Lymphocytes # (Manual) 0.5 L Carbon Dioxide 20 L Glucose 170 H POC Glucose 201 H Albumin 3.8 L 06/09/16 06/09/16 06/10/16 12:01 23:08 05:25 WBC RDW 17.4 H Lymph % (Auto) 5.6 L Lymph # 0.5 L Seg Neutrophils % 87.4 H Seg Neuts % (Manual) Lymphocytes % (Manual) Seg Neutrophils # 8.5 H Seg Neutrophils # Man Lymphocytes # (Manual) Carbon Dioxide Glucose POC Glucose 159 H 219 H Albumin 06/10/16 06/10/16 06/10/16 05:25 08:15 11:37 WBC RDW Lymph % (Auto) Lymph # Seg Neutrophils % Seg Neuts % (Manual) Lymphocytes % (Manual) Seg Neutrophils # Seg Neutrophils # Man Lymphocytes # (Manual) Carbon Dioxide 21 L Glucose 259 H POC Glucose 209 H 204 H Albumin
[2016-06-10] MEDS: LEVAQUIN PO SCH (16:20)
[2016-06-10] MEDS: ZOLOFT PO SCH (16:21)
[2016-06-10] MEDS: NORVASC PO SCH (16:21)
[2016-06-10] MEDS: ZESTRIL PO SCH (16:21)
[2016-06-10] MEDS: TESSALON PERLES PO SCH ×2 (16:22→22:00)
--- NOTE | 2016-06-10 19:11 | Progress Note ---
Assessment and Plan Assessment and plan: 1. Acute hypoxic respiratory failure Secondary to asthma exacerbation/pneumonitis Placed on BiPAP Treat underlying conditions 2. Asthma exacerbation Continue antibiotic, IV corticosteroids (start taper) along with inhaled bronchodilators and supplemental oxygen 3. Hypertension Restart amlodipine and lisinopril Monitor BP and adjust regimen as needed 4. Diabetes Hold glipizide Accu-Cheks and SSI 5. Depression/anxiety Home meds recent 6. DVT prophylaxis Lovenox History Interval history: on BIPAP in the morning c/o nausea, but no vomiting witnessed by the nurse; refusing by mouth medications asking constantly for IV pain meds, especially dilaudid Hospitalist Physical - Constitutional Vitals: Temp Pulse Resp BP Pulse Ox 97.9 F 89 18 153/76 100 06/10/16 12:20 06/10/16 15:46 06/10/16 15:46 06/10/16 12:20 06/10/16 15:34 General appearance: Present: no acute distress, obese - EENT Eyes: Present: PERRL, EOM intact. Absent: scleral icterus, conjunctival injection - Neck Neck: Present: supple, normal ROM. Absent: masses or JVD - Respiratory Respiratory effort: labored Respiratory: bilateral: diminished, wheezing - Cardiovascular Rhythm: other (tachycardic) Heart Sounds: Present: S1 & S2. Absent: systolic murmur - Extremities Extremities: no ischemia - Abdominal General gastrointestinal: soft, non-tender, non-distended, normal bowel sounds - Integumentary Integumentary: Present: warm, dry. Absent: jaundice, rash - Neurologic Neurologic: CNII-XII intact, no focal deficits Results - Labs CBC & Chem 7: 06/10/16 05:25 06/10/16 05:25 Labs: Laboratory Last Values WBC 9.7 K/mm3 (4.5-11.0) 06/10/16 05:25 RBC 4.04 M/mm3 (3.65-5.03) 06/10/16 05:25 Hgb 11.1 gm/dl (10.1-14.3) 06/10/16 05:25 Hct 34.2 % (30.3-42.9) 06/10/16 05:25 MCV 85 fl (79-97) 06/10/16 05:25 MCH 28 pg (28-32) 06/10/16 05:25 MCHC 33 % (30-34) 06/10/16 05:25 RDW 17.4 % (13.2-15.2) H 06/10/16 05:25 Plt Count 317 K/mm3 (140-440) 06/10/16 05:25 Lymph % (Auto) 5.6 % (13.4-35.0) L 06/10/16 05:25 [place] % (Auto) 6.9 % (0.0-7.3) 06/10/16 05:25 Eos % (Auto) 0.0 % (0.0-4.3) 06/10/16 05:25 Baso % (Auto) 0.1 % (0.0-1.8) 06/10/16 05:25 Lymph # 0.5 K/mm3 (1.2-5.4) L 06/10/16 05:25 [place] # 0.7 K/mm3 (0.0-0.8) 06/10/16 05:25 Eos # 0.0 K/mm3 (0.0-0.4) 06/10/16 05:25 Baso # 0.0 K/mm3 (0.0-0.1) 06/10/16 05:25 Add Manual Diff Complete 06/09/16 08:47 Total Counted 100 06/09/16 08:47 Seg Neutrophils % 87.4 % (40.0-70.0) H 06/10/16 05:25 Seg Neuts % (Manual) 93.0 % (40.0-70.0) H 06/09/16 08:47 Band Neutrophils % 0 % 06/09/16 08:47 Lymphocytes % (Manual) 4.0 % (13.4-35.0) L 06/09/16 08:47 Reactive Lymphs % (Man) 0 % 06/09/16 08:47 Monocytes % (Manual) 3.0 % (0.0-7.3) 06/09/16 08:47 Eosinophils % (Manual) 0 % (0.0-4.3) 06/09/16 08:47 Basophils % (Manual) 0 % (0.0-1.8) 06/09/16 08:47 Metamyelocytes % 0 % 06/09/16 08:47 Myelocytes % 0 % 06/09/16 08:47 Promyelocytes % 0 % 06/09/16 08:47 Blast Cells % 0 % 06/09/16 08:47 Nucleated RBC % Not Reportable 06/09/16 08:47 Seg Neutrophils # 8.5 K/mm3 (1.8-7.7) H 06/10/16 05:25 Seg Neutrophils # Man 12.6 K/mm3 (1.8-7.7) H 06/09/16 08:47 Band Neutrophils # 0.0 K/mm3 06/09/16 08:47 Lymphocytes # (Manual) 0.5 K/mm3 (1.2-5.4) L 06/09/16 08:47 Abs React Lymphs (Man) 0.0 K/mm3 06/09/16 08:47 Monocytes # (Manual) 0.4 K/mm3 (0.0-0.8) 06/09/16 08:47 Eosinophils # (Manual) 0.0 K/mm3 (0.0-0.4) 06/09/16 08:47 Basophils # (Manual) 0.0 K/mm3 (0.0-0.1) 06/09/16 08:47 Metamyelocytes # 0.0 K/mm3 06/09/16 08:47 Myelocytes # 0.0 K/mm3 06/09/16 08:47 Promyelocytes # 0.0 K/mm3 06/09/16 08:47 Blast Cells # 0.0 K/mm3 06/09/16 08:47 WBC Morphology Not Reportable 06/09/16 08:47 Hypersegmented Neuts Not Reportable 06/09/16 08:47 Hyposegmented Neuts Not Reportable 06/09/16 08:47 Hypogranular Neuts Not Reportable 06/09/16 08:47 Smudge Cells Not Reportable 06/09/16 08:47 Toxic Granulation Not Reportable 06/09/16 08:47 Toxic Vacuolation Not Reportable 06/09/16 08:47 Dohle Bodies Not Reportable 06/09/16 08:47 Pelger-Huet Anomaly Not Reportable 06/09/16 08:47 Jeanie Rods Not Reportable 06/09/16 08:47 Platelet Estimate Appears normal 06/09/16 08:47 Clumped Platelets Not Reportable 06/09/16 08:47 Plt Clumps, EDTA Not Reportable 06/09/16 08:47 Large Platelets Not Reportable 06/09/16 08:47 Giant Platelets Not Reportable 06/09/16 08:47 Platelet Satelliting Not Reportable 06/09/16 08:47 Plt Morphology Comment Not Reportable 06/09/16 08:47 RBC Morphology Normal 06/09/16 08:47 Dimorphic RBCs Not Reportable 06/09/16 08:47 Polychromasia Not Reportable 06/09/16 08:47 Hypochromasia Not Reportable 06/09/16 08:47 Poikilocytosis Not Reportable 06/09/16 08:47 Anisocytosis Not Reportable 06/09/16 08:47 Microcytosis Not Reportable 06/09/16 08:47 Macrocytosis Not Reportable 06/09/16 08:47 Spherocytes Not Reportable 06/09/16 08:47 Pappenheimer Bodies Not Reportable 06/09/16 08:47 Sickle Cells Not Reportable 06/09/16 08:47 Target Cells Not Reportable 06/09/16 08:47 Tear Drop Cells Not Reportable 06/09/16 08:47 Ovalocytes Not Reportable 06/09/16 08:47 Helmet Cells Not Reportable 06/09/16 08:47 [place] Bodies Not Reportable 06/09/16 08:47 [place] Rings Not Reportable 06/09/16 08:47 [place] Cells Not Reportable 06/09/16 08:47 Bite Cells Not Reportable 06/09/16 08:47 Crenated Cell Not Reportable 06/09/16 08:47 Elliptocytes Not Reportable 06/09/16 08:47 Acanthocytes (Spur) Not Reportable 06/09/16 08:47 Rouleaux Not Reportable 06/09/16 08:47 Hemoglobin C Crystals Not Reportable 06/09/16 08:47 Schistocytes Not Reportable 06/09/16 08:47 Malaria parasites Not Reportable 06/09/16 08:47 Sal Bodies Not Reportable 06/09/16 08:47 Hem Pathologist Commnt No 06/09/16 08:47 PT 12.2 Sec. (12.2-14.9) 06/08/16 22:04 INR 0.91 (0.87-1.13) 06/08/16 22:04 D-Dimer 505.39 ng/mlDDU (0-234) H 06/08/16 23:42 POC ABG pH 7.471 (7.35-7.45) H 06/08/16 22:48 POC ABG pCO2 28.6 (35-45) L 06/08/16 22:48 POC ABG pO2 41 (80-105) L 06/08/16 22:48 POC ABG HCO3 20.9 06/08/16 22:48 POC ABG Total CO2 22 06/08/16 22:48 POC ABG O2 Sat 80 06/08/16 22:48 POC ABG Base Excess -3 06/08/16 22:48 FiO2 35 % 06/08/16 22:48 Sodium 140 mmol/L (137-145) 06/10/16 05:25 Potassium 4.2 mmol/L (3.6-5.0) 06/10/16 05:25 Chloride 100.8 mmol/L (98-107) 06/10/16 05:25 Carbon Dioxide 21 mmol/L (22-30) L 06/10/16 05:25 Anion Gap 22 mmol/L 06/10/16 05:25 BUN 9 mg/dL (7-17) 06/10/16 05:25 Creatinine 0.8 mg/dL (0.7-1.2) 06/10/16 05:25 Estimated GFR > 60 ml/min 06/10/16 05:25 BUN/Creatinine Ratio 11.25 % 06/10/16 05:25 Glucose 259 mg/dL (65-100) H 06/10/16 05:25 POC Glucose 197 (70-105) H 06/10/16 16:20 Lactic Acid 0.6 mmol/L (0.7-2.0) L 06/08/16 22:04 Calcium 8.9 mg/dL (8.4-10.2) 06/10/16 05:25 Magnesium 2.7 mg/dL (1.7-2.3) H 06/08/16 22:10 Total Bilirubin 0.2 mg/dL (0.1-1.2) 06/09/16 08:47 AST 28 units/L (5-40) 06/09/16 08:47 ALT 38 units/L (7-56) 06/09/16 08:47 Alkaline Phosphatase 84 units/L (35-129) 06/09/16 08:47 Troponin T < 0.010 ng/mL (0.00-0.029) 06/08/16 22:10 Total Protein 6.8 g/dL (6.3-8.2) 06/09/16 08:47 Albumin 3.8 g/dL (3.9-5) L 06/09/16 08:47 Albumin/Globulin Ratio 1.3 % 06/09/16 08:47 Lipase 22 units/L (13-60) 06/08/16 22:10 Urine Color Yellow (Yellow) 06/08/16 23:31 Urine Turbidity Clear (Clear) 06/08/16 23:31 Urine pH 5.0 (5.0-7.0) 06/08/16 23:31 Ur Specific [place] 1.012 (1.003-1.030) 06/08/16 23:31 Urine Protein <15 mg/dl mg/dL (Negative) 06/08/16 23:31 Urine Glucose (UA) Neg mg/dL (Negative) 06/08/16 23:31 Urine Ketones Tr mg/dL (Negative) 06/08/16 23:31 Urine Blood Neg (Negative) 06/08/16 23:31 Urine Nitrite Neg (Negative) 06/08/16 23:31 Urine Bilirubin Neg (Negative) 06/08/16 23:31 Urine Urobilinogen < 2.0 mg/dL (<2.0) 06/08/16 23:31 Ur Leukocyte Esterase Neg (Negative) 06/08/16 23:31 Urine WBC (Auto) < 1.0 /HPF (0.0-6.0) 06/08/16 23:31 Urine RBC (Auto) 1.0 /HPF (0.0-6.0) 06/08/16 23:31 U Epithel Cells (Auto) 2.0 /HPF (0-13.0) 06/08/16 23:31 Urine Mucus Few /HPF 06/08/16 23:31 - Imaging and Cardiology Chest x-ray: image reviewed (bibasilar atelectasis) CT scan - chest: report reviewed (no PE; LL base minimal infiltrate) CT Scan - head: report reviewed
[2016-06-10] MEDS: SINGULAIR PO SCH (22:00)
[2016-06-10] MEDS: ELAVIL PO SCH (22:00)
[2016-06-10] MEDS: NORCO 5/325 PO PRN (22:40)
[2016-06-11] MEDS: NORCO 5/325 PO PRN ×2 (05:30→15:40)
[2016-06-11] MEDS: ZOFRAN IV PRN ×2 (06:00→11:52)
[2016-06-11] MEDS: TESSALON PERLES PO SCH ×3 (06:30→21:56)
[2016-06-11] MEDS: DUONEB 0.5 MG-3 MG/3 ML SOLN IH SCH ×4 (07:47→20:05)
[2016-06-11] MEDS: PULMICORT IH SCH ×3 (07:47→20:07)
[2016-06-11] MEDS: BROVANA NEBU IH SCH ×3 (07:47→20:08)
[2016-06-11] MEDS: ZESTRIL PO SCH (09:00)
[2016-06-11] MEDS: NOVOLOG SUB-Q SCH ×4 (09:00→22:40)
[2016-06-11] MEDS: NORVASC PO SCH (09:00)
[2016-06-11] MEDS: LEVAQUIN PO SCH (10:41)
[2016-06-11] MEDS: LOVENOX SUB-Q SCH (10:42)
[2016-06-11] MEDS: ZOLOFT PO SCH (10:43)
--- NOTE | 2016-06-11 13:08 | Progress Note ---
Assessment and Plan Assessment and plan: 1. Acute hypoxic respiratory failure Secondary to asthma exacerbation/pneumonitis BiPAP QHS and prn now Treat underlying conditions 2. Asthma exacerbation Continue antibiotic, IV corticosteroids (dose decreased yesterday) along with inhaled bronchodilators and supplemental oxygen 3. Hypertension On amlodipine and lisinopril BP controlled; adjust regimen if needed 4. Diabetes Hold glipizide Accu-Cheks and SSI 5. Depression/anxiety Home meds resumed 6. Obesity/OHS/MAGAN Counseled regarding importance of losing weight and lifestyle changes Advised to follow with pulmonary for outpatient sleep study 7. DVT prophylaxis Lovenox 8. Discharge planning issues Per patent law specialist recommendation consult complex case manager to see if she qualifies for home BiPAP given low pO2 on admission History Interval history: SOB improved, off BIPAP now, O2 per NC still c/o nausea and vomiting, but only spitting in her tray; also none witnessed by her nurse; continues to ask for IV pain medications; advised to take her by mouth regular medications after Zofran given Hospitalist Physical - Constitutional Vitals: Temp Pulse Resp BP Pulse Ox 97.8 F 93 H 18 137/93 97 06/11/16 08:00 06/11/16 12:19 06/11/16 12:19 06/11/16 09:00 06/11/16 08:00 General appearance: Present: no acute distress, obese - EENT Eyes: Present: PERRL, EOM intact. Absent: scleral icterus, conjunctival injection - Neck Neck: Present: supple, normal ROM. Absent: masses or JVD - Respiratory Respiratory effort: normal Respiratory: bilateral: diminished, wheezing, negative: rales - Cardiovascular Rhythm: regular Heart Sounds: Present: S1 & S2. Absent: systolic murmur - Extremities Extremities: no ischemia - Abdominal General gastrointestinal: soft, non-tender, non-distended, normal bowel sounds - Integumentary Integumentary: Present: warm, dry. Absent: jaundice, rash - Neurologic Neurologic: CNII-XII intact, no focal deficits Results - Labs CBC & Chem 7: 06/10/16 05:25 06/10/16 05:25 Labs: Laboratory Last Values WBC 9.7 K/mm3 (4.5-11.0) 06/10/16 05:25 RBC 4.04 M/mm3 (3.65-5.03) 06/10/16 05:25 Hgb 11.1 gm/dl (10.1-14.3) 06/10/16 05:25 Hct 34.2 % (30.3-42.9) 06/10/16 05:25 MCV 85 fl (79-97) 06/10/16 05:25 MCH 28 pg (28-32) 06/10/16 05:25 MCHC 33 % (30-34) 06/10/16 05:25 RDW 17.4 % (13.2-15.2) H 06/10/16 05:25 Plt Count 317 K/mm3 (140-440) 06/10/16 05:25 Lymph % (Auto) 5.6 % (13.4-35.0) L 06/10/16 05:25 [place] % (Auto) 6.9 % (0.0-7.3) 06/10/16 05:25 Eos % (Auto) 0.0 % (0.0-4.3) 06/10/16 05:25 Baso % (Auto) 0.1 % (0.0-1.8) 06/10/16 05:25 Lymph # 0.5 K/mm3 (1.2-5.4) L 06/10/16 05:25 [place] # 0.7 K/mm3 (0.0-0.8) 06/10/16 05:25 Eos # 0.0 K/mm3 (0.0-0.4) 06/10/16 05:25 Baso # 0.0 K/mm3 (0.0-0.1) 06/10/16 05:25 Add Manual Diff Complete 06/09/16 08:47 Total Counted 100 06/09/16 08:47 Seg Neutrophils % 87.4 % (40.0-70.0) H 06/10/16 05:25 Seg Neuts % (Manual) 93.0 % (40.0-70.0) H 06/09/16 08:47 Band Neutrophils % 0 % 06/09/16 08:47 Lymphocytes % (Manual) 4.0 % (13.4-35.0) L 06/09/16 08:47 Reactive Lymphs % (Man) 0 % 06/09/16 08:47 Monocytes % (Manual) 3.0 % (0.0-7.3) 06/09/16 08:47 Eosinophils % (Manual) 0 % (0.0-4.3) 06/09/16 08:47 Basophils % (Manual) 0 % (0.0-1.8) 06/09/16 08:47 Metamyelocytes % 0 % 06/09/16 08:47 Myelocytes % 0 % 06/09/16 08:47 Promyelocytes % 0 % 06/09/16 08:47 Blast Cells % 0 % 06/09/16 08:47 Nucleated RBC % Not Reportable 06/09/16 08:47 Seg Neutrophils # 8.5 K/mm3 (1.8-7.7) H 06/10/16 05:25 Seg Neutrophils # Man 12.6 K/mm3 (1.8-7.7) H 06/09/16 08:47 Band Neutrophils # 0.0 K/mm3 06/09/16 08:47 Lymphocytes # (Manual) 0.5 K/mm3 (1.2-5.4) L 06/09/16 08:47 Abs React Lymphs (Man) 0.0 K/mm3 06/09/16 08:47 Monocytes # (Manual) 0.4 K/mm3 (0.0-0.8) 06/09/16 08:47 Eosinophils # (Manual) 0.0 K/mm3 (0.0-0.4) 06/09/16 08:47 Basophils # (Manual) 0.0 K/mm3 (0.0-0.1) 06/09/16 08:47 Metamyelocytes # 0.0 K/mm3 06/09/16 08:47 Myelocytes # 0.0 K/mm3 06/09/16 08:47 Promyelocytes # 0.0 K/mm3 06/09/16 08:47 Blast Cells # 0.0 K/mm3 06/09/16 08:47 WBC Morphology Not Reportable 06/09/16 08:47 Hypersegmented Neuts Not Reportable 06/09/16 08:47 Hyposegmented Neuts Not Reportable 06/09/16 08:47 Hypogranular Neuts Not Reportable 06/09/16 08:47 Smudge Cells Not Reportable 06/09/16 08:47 Toxic Granulation Not Reportable 06/09/16 08:47 Toxic Vacuolation Not Reportable 06/09/16 08:47 Dohle Bodies Not Reportable 06/09/16 08:47 Pelger-[place]uet Anomaly Not Reportable 06/09/16 08:47 Jeanie Rods Not Reportable 06/09/16 08:47 Platelet Estimate Appears normal 06/09/16 08:47 Clumped Platelets Not Reportable 06/09/16 08:47 Plt Clumps, EDTA Not Reportable 06/09/16 08:47 Large Platelets Not Reportable 06/09/16 08:47 Giant Platelets Not Reportable 06/09/16 08:47 Platelet Satelliting Not Reportable 06/09/16 08:47 Plt Morphology Comment Not Reportable 06/09/16 08:47 RBC Morphology Normal 06/09/16 08:47 Dimorphic RBCs Not Reportable 06/09/16 08:47 Polychromasia Not Reportable 06/09/16 08:47 Hypochromasia Not Reportable 06/09/16 08:47 Poikilocytosis Not Reportable 06/09/16 08:47 Anisocytosis Not Reportable 06/09/16 08:47 Microcytosis Not Reportable 06/09/16 08:47 Macrocytosis Not Reportable 06/09/16 08:47 Spherocytes Not Reportable 06/09/16 08:47 Pappenheimer Bodies Not Reportable 06/09/16 08:47 Sickle Cells Not Reportable 06/09/16 08:47 Target Cells Not Reportable 06/09/16 08:47 Tear Drop Cells Not Reportable 06/09/16 08:47 Ovalocytes Not Reportable 06/09/16 08:47 Helmet Cells Not Reportable 06/09/16 08:47 [place] Bodies Not Reportable 06/09/16 08:47 [place] Rings Not Reportable 06/09/16 08:47 [place] Cells Not Reportable 06/09/16 08:47 Bite Cells Not Reportable 06/09/16 08:47 Crenated Cell Not Reportable 06/09/16 08:47 Elliptocytes Not Reportable 06/09/16 08:47 Acanthocytes (Spur) Not Reportable 06/09/16 08:47 Rouleaux Not Reportable 06/09/16 08:47 Hemoglobin C Crystals Not Reportable 06/09/16 08:47 Schistocytes Not Reportable 06/09/16 08:47 Malaria parasites Not Reportable 06/09/16 08:47 Sal Bodies Not Reportable 06/09/16 08:47 Hem Pathologist Commnt No 06/09/16 08:47 PT 12.2 Sec. (12.2-14.9) 06/08/16 22:04 INR 0.91 (0.87-1.13) 06/08/16 22:04 D-Dimer 505.39 ng/mlDDU (0-234) H 06/08/16 23:42 POC ABG pH 7.471 (7.35-7.45) H 06/08/16 22:48 POC ABG pCO2 28.6 (35-45) L 06/08/16 22:48 POC ABG pO2 41 (80-105) L 06/08/16 22:48 POC ABG HCO3 20.9 06/08/16 22:48 POC ABG Total CO2 22 06/08/16 22:48 POC ABG O2 Sat 80 06/08/16 22:48 POC ABG Base Excess -3 06/08/16 22:48 FiO2 35 % 06/08/16 22:48 Sodium 140 mmol/L (137-145) 06/10/16 05:25 Potassium 4.2 mmol/L (3.6-5.0) 06/10/16 05:25 Chloride 100.8 mmol/L (98-107) 06/10/16 05:25 Carbon Dioxide 21 mmol/L (22-30) L 06/10/16 05:25 Anion Gap 22 mmol/L 06/10/16 05:25 BUN 9 mg/dL (7-17) 06/10/16 05:25 Creatinine 0.8 mg/dL (0.7-1.2) 06/10/16 05:25 Estimated GFR > 60 ml/min 06/10/16 05:25 BUN/Creatinine Ratio 11.25 % 06/10/16 05:25 Glucose 259 mg/dL (65-100) H 06/10/16 05:25 POC Glucose 198 (70-105) H 06/11/16 08:39 Lactic Acid 0.6 mmol/L (0.7-2.0) L 06/08/16 22:04 Calcium 8.9 mg/dL (8.4-10.2) 06/10/16 05:25 Magnesium 2.7 mg/dL (1.7-2.3) H 06/08/16 22:10 Total Bilirubin 0.2 mg/dL (0.1-1.2) 06/09/16 08:47 AST 28 units/L (5-40) 06/09/16 08:47 ALT 38 units/L (7-56) 06/09/16 08:47 Alkaline Phosphatase 84 units/L (35-129) 06/09/16 08:47 Troponin T < 0.010 ng/mL (0.00-0.029) 06/08/16 22:10 Total Protein 6.8 g/dL (6.3-8.2) 06/09/16 08:47 Albumin 3.8 g/dL (3.9-5) L 06/09/16 08:47 Albumin/Globulin Ratio 1.3 % 06/09/16 08:47 Lipase 22 units/L (13-60) 06/08/16 22:10 Urine Color Yellow (Yellow) 06/08/16 23:31 Urine Turbidity Clear (Clear) 06/08/16 23:31 Urine pH 5.0 (5.0-7.0) 06/08/16 23:31 Ur Specific [place] 1.012 (1.003-1.030) 06/08/16 23:31 Urine Protein <15 mg/dl mg/dL (Negative) 06/08/16 23:31 Urine Glucose (UA) Neg mg/dL (Negative) 06/08/16 23:31 Urine Ketones Tr mg/dL (Negative) 06/08/16 23:31 Urine Blood Neg (Negative) 06/08/16 23:31 Urine Nitrite Neg (Negative) 06/08/16 23:31 Urine Bilirubin Neg (Negative) 06/08/16 23:31 Urine Urobilinogen < 2.0 mg/dL (<2.0) 06/08/16 23:31 Ur Leukocyte Esterase Neg (Negative) 06/08/16 23:31 Urine WBC (Auto) < 1.0 /HPF (0.0-6.0) 06/08/16 23:31 Urine RBC (Auto) 1.0 /HPF (0.0-6.0) 06/08/16 23:31 U Epithel Cells (Auto) 2.0 /HPF (0-13.0) 06/08/16 23:31 Urine Mucus Few /HPF 06/08/16 23:31
[2016-06-11] MEDS: XANAX PO PRN (15:39)
[2016-06-11] MEDS: ELAVIL PO SCH (21:55)
[2016-06-11] MEDS: SINGULAIR PO SCH (21:56)
[2016-06-11] MEDS ORDERED: PROVENTIL IH PRN (23:24)
[2016-06-11] MEDS ORDERED: PROVENTIL IH ONE (23:28)
[2016-06-12] MEDS: BROVANA NEBU IH SCH ×2 (08:33→21:21)
[2016-06-12] MEDS: PULMICORT IH SCH ×2 (08:33→21:20)
[2016-06-12] MEDS: DUONEB 0.5 MG-3 MG/3 ML SOLN IH SCH ×3 (08:34→21:20)
[2016-06-12] MEDS: TESSALON PERLES PO SCH ×3 (08:35→22:04)
[2016-06-12] MEDS: NOVOLOG SUB-Q SCH ×4 (08:53→22:20)
[2016-06-12] MEDS: XANAX PO PRN ×3 (08:54→22:04)
[2016-06-12] MEDS: NORCO 5/325 PO PRN ×3 (08:54→22:15)
[2016-06-12] MEDS: LEVAQUIN PO SCH (10:02)
[2016-06-12] MEDS: NORVASC PO SCH (10:02)
[2016-06-12] MEDS: LOVENOX SUB-Q SCH (10:02)
[2016-06-12] MEDS: ZESTRIL PO SCH (10:03)
[2016-06-12] MEDS: ZOLOFT PO SCH (10:03)
[2016-06-12] MEDS: ZOFRAN IV PRN (15:46)
[2016-06-12] MEDS ORDERED: MORPHINE IV PRN (18:53)
--- NOTE | 2016-06-12 18:58 | Progress Note ---
Assessment and Plan Assessment and plan: 1. Acute hypoxic respiratory failure Secondary to asthma exacerbation/pneumonitis BiPAP QHS Treat underlying conditions 2. Asthma exacerbation Continue antibiotic, decreased dose of corticosteroids and change to by mouth, inhaled bronchodilators and supplemental oxygen 3. Hypertension On amlodipine and lisinopril BP elevated, so will increase lisinopril dose and continue to monitor 4. Diabetes Hold glipizide Accu-Cheks and SSI 5. Depression/anxiety Home meds resumed 6. Obesity/OHS/MAGAN Counseled regarding importance of losing weight and lifestyle changes Advised to follow with pulmonary for outpatient sleep study 7. DVT prophylaxis Lovenox 8. Discharge planning issues Per wind instrument repairer recommendation lead case manager consulted to see if she qualifies for home BiPAP given low pO2 on admission History Interval history: still wheezing, but it is more upper resp wheezing, still c/o nausea and trying to make herself vomiting, asking for iv pain meds Hospitalist Physical - Constitutional Vitals: Temp Pulse Resp BP Pulse Ox 97.7 F 120 H 18 156/95 100 06/12/16 07:45 06/12/16 13:52 06/12/16 15:45 06/12/16 12:58 06/12/16 09:00 General appearance: Present: no acute distress, obese - Neck Neck: Present: supple, normal ROM. Absent: masses or JVD - Respiratory Respiratory effort: normal Respiratory: bilateral: diminished, wheezing, negative: rhonchi - Cardiovascular Rhythm: regular Heart Sounds: Present: S1 & S2. Absent: systolic murmur - Extremities Extremities: no ischemia - Abdominal General gastrointestinal: soft, non-tender, non-distended, normal bowel sounds - Psychiatric Psychiatric: other (manipulative) - Neurologic Neurologic: no focal deficits Results - Labs CBC & Chem 7: 06/10/16 05:25 06/10/16 05:25 Labs: Laboratory Last Values WBC 9.7 K/mm3 (4.5-11.0) 06/10/16 05:25 RBC 4.04 M/mm3 (3.65-5.03) 06/10/16 05:25 Hgb 11.1 gm/dl (10.1-14.3) 06/10/16 05:25 Hct 34.2 % (30.3-42.9) 06/10/16 05:25 MCV 85 fl (79-97) 06/10/16 05:25 MCH 28 pg (28-32) 06/10/16 05:25 MCHC 33 % (30-34) 06/10/16 05:25 RDW 17.4 % (13.2-15.2) H 06/10/16 05:25 Plt Count 317 K/mm3 (140-440) 06/10/16 05:25 Lymph % (Auto) 5.6 % (13.4-35.0) L 06/10/16 05:25 [place] % (Auto) 6.9 % (0.0-7.3) 06/10/16 05:25 Eos % (Auto) 0.0 % (0.0-4.3) 06/10/16 05:25 Baso % (Auto) 0.1 % (0.0-1.8) 06/10/16 05:25 Lymph # 0.5 K/mm3 (1.2-5.4) L 06/10/16 05:25 [place] # 0.7 K/mm3 (0.0-0.8) 06/10/16 05:25 Eos # 0.0 K/mm3 (0.0-0.4) 06/10/16 05:25 Baso # 0.0 K/mm3 (0.0-0.1) 06/10/16 05:25 Add Manual Diff Complete 06/09/16 08:47 Total Counted 100 06/09/16 08:47 Seg Neutrophils % 87.4 % (40.0-70.0) H 06/10/16 05:25 Seg Neuts % (Manual) 93.0 % (40.0-70.0) H 06/09/16 08:47 Band Neutrophils % 0 % 06/09/16 08:47 Lymphocytes % (Manual) 4.0 % (13.4-35.0) L 06/09/16 08:47 Reactive Lymphs % (Man) 0 % 06/09/16 08:47 Monocytes % (Manual) 3.0 % (0.0-7.3) 06/09/16 08:47 Eosinophils % (Manual) 0 % (0.0-4.3) 06/09/16 08:47 Basophils % (Manual) 0 % (0.0-1.8) 06/09/16 08:47 Metamyelocytes % 0 % 06/09/16 08:47 Myelocytes % 0 % 06/09/16 08:47 Promyelocytes % 0 % 06/09/16 08:47 Blast Cells % 0 % 06/09/16 08:47 Nucleated RBC % Not Reportable 06/09/16 08:47 Seg Neutrophils # 8.5 K/mm3 (1.8-7.7) H 06/10/16 05:25 Seg Neutrophils # Man 12.6 K/mm3 (1.8-7.7) H 06/09/16 08:47 Band Neutrophils # 0.0 K/mm3 06/09/16 08:47 Lymphocytes # (Manual) 0.5 K/mm3 (1.2-5.4) L 06/09/16 08:47 Abs React Lymphs (Man) 0.0 K/mm3 06/09/16 08:47 Monocytes # (Manual) 0.4 K/mm3 (0.0-0.8) 06/09/16 08:47 Eosinophils # (Manual) 0.0 K/mm3 (0.0-0.4) 06/09/16 08:47 Basophils # (Manual) 0.0 K/mm3 (0.0-0.1) 06/09/16 08:47 Metamyelocytes # 0.0 K/mm3 06/09/16 08:47 Myelocytes # 0.0 K/mm3 06/09/16 08:47 Promyelocytes # 0.0 K/mm3 06/09/16 08:47 Blast Cells # 0.0 K/mm3 06/09/16 08:47 WBC Morphology Not Reportable 06/09/16 08:47 Hypersegmented Neuts Not Reportable 06/09/16 08:47 Hyposegmented Neuts Not Reportable 06/09/16 08:47 Hypogranular Neuts Not Reportable 06/09/16 08:47 Smudge Cells Not Reportable 06/09/16 08:47 Toxic Granulation Not Reportable 06/09/16 08:47 Toxic Vacuolation Not Reportable 06/09/16 08:47 Dohle Bodies Not Reportable 06/09/16 08:47 Pelger-Huet Anomaly Not Reportable 06/09/16 08:47 Jeanie Rods Not Reportable 06/09/16 08:47 Platelet Estimate Appears normal 06/09/16 08:47 Clumped Platelets Not Reportable 06/09/16 08:47 Plt Clumps, EDTA Not Reportable 06/09/16 08:47 Large Platelets Not Reportable 06/09/16 08:47 Giant Platelets Not Reportable 06/09/16 08:47 Platelet Satelliting Not Reportable 06/09/16 08:47 Plt Morphology Comment Not Reportable 06/09/16 08:47 RBC Morphology Normal 06/09/16 08:47 Dimorphic RBCs Not Reportable 06/09/16 08:47 Polychromasia Not Reportable 06/09/16 08:47 Hypochromasia Not Reportable 06/09/16 08:47 Poikilocytosis Not Reportable 06/09/16 08:47 Anisocytosis Not Reportable 06/09/16 08:47 Microcytosis Not Reportable 06/09/16 08:47 Macrocytosis Not Reportable 06/09/16 08:47 Spherocytes Not Reportable 06/09/16 08:47 Pappenheimer Bodies Not Reportable 06/09/16 08:47 Sickle Cells Not Reportable 06/09/16 08:47 Target Cells Not Reportable 06/09/16 08:47 Tear Drop Cells Not Reportable 06/09/16 08:47 Ovalocytes Not Reportable 06/09/16 08:47 Helmet Cells Not Reportable 06/09/16 08:47 [place] Bodies Not Reportable 06/09/16 08:47 [place] Rings Not Reportable 06/09/16 08:47 [place] Cells Not Reportable 06/09/16 08:47 Bite Cells Not Reportable 06/09/16 08:47 Crenated Cell Not Reportable 06/09/16 08:47 Elliptocytes Not Reportable 06/09/16 08:47 Acanthocytes (Spur) Not Reportable 06/09/16 08:47 Rouleaux Not Reportable 06/09/16 08:47 Hemoglobin C Crystals Not Reportable 06/09/16 08:47 Schistocytes Not Reportable 06/09/16 08:47 Malaria parasites Not Reportable 06/09/16 08:47 Sal Bodies Not Reportable 06/09/16 08:47 Hem Pathologist Commnt No 06/09/16 08:47 PT 12.2 Sec. (12.2-14.9) 06/08/16 22:04 INR 0.91 (0.87-1.13) 06/08/16 22:04 D-Dimer 505.39 ng/mlDDU (0-234) H 06/08/16 23:42 POC ABG pH 7.471 (7.35-7.45) H 06/08/16 22:48 POC ABG pCO2 28.6 (35-45) L 06/08/16 22:48 POC ABG pO2 41 (80-105) L 06/08/16 22:48 POC ABG HCO3 20.9 06/08/16 22:48 POC ABG Total CO2 22 06/08/16 22:48 POC ABG O2 Sat 80 06/08/16 22:48 POC ABG Base Excess -3 06/08/16 22:48 FiO2 35 % 06/08/16 22:48 Sodium 140 mmol/L (137-145) 06/10/16 05:25 Potassium 4.2 mmol/L (3.6-5.0) 06/10/16 05:25 Chloride 100.8 mmol/L (98-107) 06/10/16 05:25 Carbon Dioxide 21 mmol/L (22-30) L 06/10/16 05:25 Anion Gap 22 mmol/L 06/10/16 05:25 BUN 9 mg/dL (7-17) 06/10/16 05:25 Creatinine 0.8 mg/dL (0.7-1.2) 06/10/16 05:25 Estimated GFR > 60 ml/min 06/10/16 05:25 BUN/Creatinine Ratio 11.25 % 06/10/16 05:25 Glucose 259 mg/dL (65-100) H 06/10/16 05:25 POC Glucose 172 (70-105) H 06/12/16 12:18 Lactic Acid 0.6 mmol/L (0.7-2.0) L 06/08/16 22:04 Calcium 8.9 mg/dL (8.4-10.2) 06/10/16 05:25 Magnesium 2.7 mg/dL (1.7-2.3) H 06/08/16 22:10 Total Bilirubin 0.2 mg/dL (0.1-1.2) 06/09/16 08:47 AST 28 units/L (5-40) 06/09/16 08:47 ALT 38 units/L (7-56) 06/09/16 08:47 Alkaline Phosphatase 84 units/L (35-129) 06/09/16 08:47 Troponin T < 0.010 ng/mL (0.00-0.029) 06/08/16 22:10 Total Protein 6.8 g/dL (6.3-8.2) 06/09/16 08:47 Albumin 3.8 g/dL (3.9-5) L 06/09/16 08:47 Albumin/Globulin Ratio 1.3 % 06/09/16 08:47 Lipase 22 units/L (13-60) 06/08/16 22:10 Urine Color Yellow (Yellow) 06/08/16 23:31 Urine Turbidity Clear (Clear) 06/08/16 23:31 Urine pH 5.0 (5.0-7.0) 06/08/16 23:31 Ur Specific [place] 1.012 (1.003-1.030) 06/08/16 23:31 Urine Protein <15 mg/dl mg/dL (Negative) 06/08/16 23:31 Urine Glucose (UA) Neg mg/dL (Negative) 06/08/16 23:31 Urine Ketones Tr mg/dL (Negative) 06/08/16 23:31 Urine Blood Neg (Negative) 06/08/16 23:31 Urine Nitrite Neg (Negative) 06/08/16 23:31 Urine Bilirubin Neg (Negative) 06/08/16 23:31 Urine Urobilinogen < 2.0 mg/dL (<2.0) 06/08/16 23:31 Ur Leukocyte Esterase Neg (Negative) 06/08/16 23:31 Urine WBC (Auto) < 1.0 /HPF (0.0-6.0) 06/08/16 23:31 Urine RBC (Auto) 1.0 /HPF (0.0-6.0) 06/08/16 23:31 U Epithel Cells (Auto) 2.0 /HPF (0-13.0) 06/08/16 23:31 Urine Mucus Few /HPF 06/08/16 23:31
[2016-06-12] MEDS: SINGULAIR PO SCH (22:04)
[2016-06-12] MEDS: ELAVIL PO SCH (22:14)
[2016-06-13] MEDS: TESSALON PERLES PO SCH ×3 (06:47→22:02)
[2016-06-13] MEDS: PULMICORT IH SCH ×2 (07:22→19:24)
[2016-06-13] MEDS: BROVANA NEBU IH SCH ×2 (07:22→19:24)
[2016-06-13] MEDS: DUONEB 0.5 MG-3 MG/3 ML SOLN IH SCH ×3 (07:23→19:24)
[2016-06-13] MEDS: NOVOLOG SUB-Q SCH ×4 (08:33→22:01)
[2016-06-13] MEDS: LOVENOX SUB-Q SCH (09:00)
[2016-06-13] MEDS: NORCO 5/325 PO PRN ×2 (09:00→15:04)
[2016-06-13] MEDS: ZESTRIL PO SCH (09:00)
[2016-06-13] MEDS: DELTASONE PO SCH (09:00)
[2016-06-13] MEDS: LEVAQUIN PO SCH (09:00)
[2016-06-13] MEDS: ZOFRAN IV PRN ×3 (09:00→22:08)
[2016-06-13] MEDS: NORVASC PO SCH (09:00)
[2016-06-13] MEDS: ZOLOFT PO SCH (09:13)
[2016-06-13] MEDS: XANAX PO PRN ×2 (12:12→22:08)
--- NOTE | 2016-06-13 14:41 | Progress Note ---
Assessment and Plan Assessment and plan: 1. Acute hypoxic respiratory failure Secondary to asthma exacerbation/pneumonitis BiPAP QHS Treat underlying conditions 2. Asthma exacerbation Continue antibiotic, corticosteroids switched to by mouth, inhaled bronchodilators and supplemental oxygen 3. Hypertension On amlodipine and lisinopril BP elevated, so lisinopril dose increased Monitor BP today 4. Diabetes Hold glipizide Accu-Cheks and SSI 5. Depression/anxiety Home meds resumed 6. Obesity/OHS/MAGAN Counseled regarding importance of losing weight and lifestyle changes Advised to follow with pulmonary for outpatient sleep study 7. DVT prophylaxis Lovenox 8. Discharge planning issues Per composition molder recommendation case maker consulted to see if she qualifies for home BiPAP given low pO2 on admission; information sent to [facility] as patient is already receiving oxygen through this company. Anticipate discharge in am History Interval history: wheezing improved, still c/o nausea Hospitalist Physical - Constitutional Vitals: Temp Pulse Resp BP Pulse Ox 97.8 F 98 H 20 155/95 100 06/13/16 07:30 06/13/16 14:22 06/13/16 14:22 06/13/16 09:00 06/13/16 07:30 General appearance: Present: no acute distress, obese - EENT Eyes: Present: PERRL, EOM intact. Absent: scleral icterus, conjunctival injection - Neck Neck: Present: supple, normal ROM. Absent: masses or JVD - Respiratory Respiratory effort: normal Respiratory: bilateral: diminished, wheezing (rare exp wheezes) - Cardiovascular Rhythm: regular Heart Sounds: Present: S1 & S2. Absent: systolic murmur - Extremities Extremities: no ischemia - Abdominal General gastrointestinal: soft, non-tender, non-distended, normal bowel sounds - Neurologic Neurologic: CNII-XII intact, no focal deficits Results - Labs CBC & Chem 7: 06/10/16 05:25 06/10/16 05:25 Labs: Laboratory Last Values WBC 9.7 K/mm3 (4.5-11.0) 06/10/16 05:25 RBC 4.04 M/mm3 (3.65-5.03) 06/10/16 05:25 Hgb 11.1 gm/dl (10.1-14.3) 06/10/16 05:25 Hct 34.2 % (30.3-42.9) 06/10/16 05:25 MCV 85 fl (79-97) 06/10/16 05:25 MCH 28 pg (28-32) 06/10/16 05:25 MCHC 33 % (30-34) 06/10/16 05:25 RDW 17.4 % (13.2-15.2) H 06/10/16 05:25 Plt Count 317 K/mm3 (140-440) 06/10/16 05:25 Lymph % (Auto) 5.6 % (13.4-35.0) L 06/10/16 05:25 [place] % (Auto) 6.9 % (0.0-7.3) 06/10/16 05:25 Eos % (Auto) 0.0 % (0.0-4.3) 06/10/16 05:25 Baso % (Auto) 0.1 % (0.0-1.8) 06/10/16 05:25 Lymph # 0.5 K/mm3 (1.2-5.4) L 06/10/16 05:25 [place] # 0.7 K/mm3 (0.0-0.8) 06/10/16 05:25 Eos # 0.0 K/mm3 (0.0-0.4) 06/10/16 05:25 Baso # 0.0 K/mm3 (0.0-0.1) 06/10/16 05:25 Add Manual Diff Complete 06/09/16 08:47 Total Counted 100 06/09/16 08:47 Seg Neutrophils % 87.4 % (40.0-70.0) H 06/10/16 05:25 Seg Neuts % (Manual) 93.0 % (40.0-70.0) H 06/09/16 08:47 Band Neutrophils % 0 % 06/09/16 08:47 Lymphocytes % (Manual) 4.0 % (13.4-35.0) L 06/09/16 08:47 Reactive Lymphs % (Man) 0 % 06/09/16 08:47 Monocytes % (Manual) 3.0 % (0.0-7.3) 06/09/16 08:47 Eosinophils % (Manual) 0 % (0.0-4.3) 06/09/16 08:47 Basophils % (Manual) 0 % (0.0-1.8) 06/09/16 08:47 Metamyelocytes % 0 % 06/09/16 08:47 Myelocytes % 0 % 06/09/16 08:47 Promyelocytes % 0 % 06/09/16 08:47 Blast Cells % 0 % 06/09/16 08:47 Nucleated RBC % Not Reportable 06/09/16 08:47 Seg Neutrophils # 8.5 K/mm3 (1.8-7.7) H 06/10/16 05:25 Seg Neutrophils # Man 12.6 K/mm3 (1.8-7.7) H 06/09/16 08:47 Band Neutrophils # 0.0 K/mm3 06/09/16 08:47 Lymphocytes # (Manual) 0.5 K/mm3 (1.2-5.4) L 06/09/16 08:47 Abs React Lymphs (Man) 0.0 K/mm3 06/09/16 08:47 Monocytes # (Manual) 0.4 K/mm3 (0.0-0.8) 06/09/16 08:47 Eosinophils # (Manual) 0.0 K/mm3 (0.0-0.4) 06/09/16 08:47 Basophils # (Manual) 0.0 K/mm3 (0.0-0.1) 06/09/16 08:47 Metamyelocytes # 0.0 K/mm3 06/09/16 08:47 Myelocytes # 0.0 K/mm3 06/09/16 08:47 Promyelocytes # 0.0 K/mm3 06/09/16 08:47 Blast Cells # 0.0 K/mm3 06/09/16 08:47 WBC Morphology Not Reportable 06/09/16 08:47 Hypersegmented Neuts Not Reportable 06/09/16 08:47 Hyposegmented Neuts Not Reportable 06/09/16 08:47 Hypogranular Neuts Not Reportable 06/09/16 08:47 Smudge Cells Not Reportable 06/09/16 08:47 Toxic Granulation Not Reportable 06/09/16 08:47 Toxic Vacuolation Not Reportable 06/09/16 08:47 Dohle Bodies Not Reportable 06/09/16 08:47 Pelger-Huet Anomaly Not Reportable 06/09/16 08:47 Jeanie Rods Not Reportable 06/09/16 08:47 Platelet Estimate Appears normal 06/09/16 08:47 Clumped Platelets Not Reportable 06/09/16 08:47 Plt Clumps, EDTA Not Reportable 06/09/16 08:47 Large Platelets Not Reportable 06/09/16 08:47 Giant Platelets Not Reportable 06/09/16 08:47 Platelet Satelliting Not Reportable 06/09/16 08:47 Plt Morphology Comment Not Reportable 06/09/16 08:47 RBC Morphology Normal 06/09/16 08:47 Dimorphic RBCs Not Reportable 06/09/16 08:47 Polychromasia Not Reportable 06/09/16 08:47 Hypochromasia Not Reportable 06/09/16 08:47 Poikilocytosis Not Reportable 06/09/16 08:47 Anisocytosis Not Reportable 06/09/16 08:47 Microcytosis Not Reportable 06/09/16 08:47 Macrocytosis Not Reportable 06/09/16 08:47 Spherocytes Not Reportable 06/09/16 08:47 Pappenheimer Bodies Not Reportable 06/09/16 08:47 Sickle Cells Not Reportable 06/09/16 08:47 Target Cells Not Reportable 06/09/16 08:47 Tear Drop Cells Not Reportable 06/09/16 08:47 Ovalocytes Not Reportable 06/09/16 08:47 Helmet Cells Not Reportable 06/09/16 08:47 [place] Bodies Not Reportable 06/09/16 08:47 [place] Rings Not Reportable 06/09/16 08:47 [place] Cells Not Reportable 06/09/16 08:47 Bite Cells Not Reportable 06/09/16 08:47 Crenated Cell Not Reportable 06/09/16 08:47 Elliptocytes Not Reportable 06/09/16 08:47 Acanthocytes (Spur) Not Reportable 06/09/16 08:47 Rouleaux Not Reportable 06/09/16 08:47 Hemoglobin C Crystals Not Reportable 06/09/16 08:47 Schistocytes Not Reportable 06/09/16 08:47 Malaria parasites Not Reportable 06/09/16 08:47 Sal Bodies Not Reportable 06/09/16 08:47 Hem Pathologist Commnt No 06/09/16 08:47 PT 12.2 Sec. (12.2-14.9) 06/08/16 22:04 INR 0.91 (0.87-1.13) 06/08/16 22:04 D-Dimer 505.39 ng/mlDDU (0-234) H 06/08/16 23:42 POC ABG pH 7.471 (7.35-7.45) H 06/08/16 22:48 POC ABG pCO2 28.6 (35-45) L 06/08/16 22:48 POC ABG pO2 41 (80-105) L 06/08/16 22:48 POC ABG HCO3 20.9 06/08/16 22:48 POC ABG Total CO2 22 06/08/16 22:48 POC ABG O2 Sat 80 06/08/16 22:48 POC ABG Base Excess -3 06/08/16 22:48 FiO2 35 % 06/08/16 22:48 Sodium 140 mmol/L (137-145) 06/10/16 05:25 Potassium 4.2 mmol/L (3.6-5.0) 06/10/16 05:25 Chloride 100.8 mmol/L (98-107) 06/10/16 05:25 Carbon Dioxide 21 mmol/L (22-30) L 06/10/16 05:25 Anion Gap 22 mmol/L 06/10/16 05:25 BUN 9 mg/dL (7-17) 06/10/16 05:25 Creatinine 0.8 mg/dL (0.7-1.2) 06/10/16 05:25 Estimated GFR > 60 ml/min 06/10/16 05:25 BUN/Creatinine Ratio 11.25 % 06/10/16 05:25 Glucose 259 mg/dL (65-100) H 06/10/16 05:25 POC Glucose 180 (70-105) H 06/13/16 07:13 Lactic Acid 0.6 mmol/L (0.7-2.0) L 06/08/16 22:04 Calcium 8.9 mg/dL (8.4-10.2) 06/10/16 05:25 Magnesium 2.7 mg/dL (1.7-2.3) H 06/08/16 22:10 Total Bilirubin 0.2 mg/dL (0.1-1.2) 06/09/16 08:47 AST 28 units/L (5-40) 06/09/16 08:47 ALT 38 units/L (7-56) 06/09/16 08:47 Alkaline Phosphatase 84 units/L (35-129) 06/09/16 08:47 Troponin T < 0.010 ng/mL (0.00-0.029) 06/08/16 22:10 Total Protein 6.8 g/dL (6.3-8.2) 06/09/16 08:47 Albumin 3.8 g/dL (3.9-5) L 06/09/16 08:47 Albumin/Globulin Ratio 1.3 % 06/09/16 08:47 Lipase 22 units/L (13-60) 06/08/16 22:10 Urine Color Yellow (Yellow) 06/08/16 23:31 Urine Turbidity Clear (Clear) 06/08/16 23:31 Urine pH 5.0 (5.0-7.0) 06/08/16 23:31 Ur Specific [place] 1.012 (1.003-1.030) 06/08/16 23:31 Urine Protein <15 mg/dl mg/dL (Negative) 06/08/16 23:31 Urine Glucose (UA) Neg mg/dL (Negative) 06/08/16 23:31 Urine Ketones Tr mg/dL (Negative) 06/08/16 23:31 Urine Blood Neg (Negative) 06/08/16 23:31 Urine Nitrite Neg (Negative) 06/08/16 23:31 Urine Bilirubin Neg (Negative) 06/08/16 23:31 Urine Urobilinogen < 2.0 mg/dL (<2.0) 06/08/16 23:31 Ur Leukocyte Esterase Neg (Negative) 06/08/16 23:31 Urine WBC (Auto) < 1.0 /HPF (0.0-6.0) 06/08/16 23:31 Urine RBC (Auto) 1.0 /HPF (0.0-6.0) 06/08/16 23:31 U Epithel Cells (Auto) 2.0 /HPF (0-13.0) 06/08/16 23:31 Urine Mucus Few /HPF 06/08/16 23:31
--- NOTE | 2016-06-13 15:13 | Progress Note ---
Assessment and Plan 45 y/o obese female with likely asthma, admitted with acute respiratory failure requiring bipap therapy and exacerbation of asthma, secondary to lack of medication. 1. Agree with change to 60 daily. 2. Continue pulmicort and brovana BID 3. PRN nebs as well 4. Supplemental O2, wean for sats >88% 5. Reviewed ABG. PaO2 was low at 41 but not hypercapnic. Not sure if this would qualify her for home bipap therapy prior to sleep study. Suggest CM consult to see if this is feasible. If not, will attempt to wean off night time positive pressure. Follow up Case Management Subjective Date of service: 06/13/16 Interval history: No acute events. Sleeping. No family at bedside. Objective Vital Signs - 12hr 06/13/16 06/13/16 06/13/16 07:22 07:23 07:30 Temperature 97.8 F Pulse Rate Pulse Rate [ 82 Anterior Bilateral Throughout] Pulse Rate [ 88 From Monitor] Respiratory 20 Rate Respiratory 20 Rate [Anterior Bilateral Throughout] Respiratory Rate [Medial Abdomen] Blood Pressure Blood Pressure 155/95 [Left Arm] O2 Sat by Pulse 98 100 Oximetry 06/13/16 06/13/16 06/13/16 07:32 09:00 10:00 Temperature Pulse Rate 88 Pulse Rate [ 87 Anterior Bilateral Throughout] Pulse Rate [ From Monitor] Respiratory 20 20 Rate Respiratory 20 Rate [Anterior Bilateral Throughout] Respiratory 20 Rate [Medial Abdomen] Blood Pressure 155/95 Blood Pressure [Left Arm] O2 Sat by Pulse Oximetry 06/13/16 06/13/16 14:22 15:04 Temperature Pulse Rate Pulse Rate [ 98 H Anterior Bilateral Throughout] Pulse Rate [ From Monitor] Respiratory 20 Rate Respiratory 20 Rate [Anterior Bilateral Throughout] Respiratory Rate [Medial Abdomen] Blood Pressure Blood Pressure [Left Arm] O2 Sat by Pulse Oximetry Constitutional: no acute distress, alert, other (obese) ENT: oropharynx moist Neck: supple Ascultation: Bilateral: clear, diminished breath sounds Percussion: Bilateral: not dull Tactile fremitus: Bilateral: normal Cardiovascular: regular rate and rhythm Gastrointestinal: normoactive bowel sounds, soft, non-tender Integumentary: normal Extremities: no cyanosis Neurologic: normal mental status, non-focal exam CBC and BMP: 06/10/16 05:25 06/10/16 05:25 ABG, PT/INR, D-dimer: ABG POC ABG pH 7.471 (7.35-7.45) H 06/08/16 22:48 POC ABG pCO2 28.6 (35-45) L 06/08/16 22:48 POC ABG pO2 41 (80-105) L 06/08/16 22:48 POC ABG HCO3 20.9 06/08/16 22:48 POC ABG Total CO2 22 06/08/16 22:48 POC ABG O2 Sat 80 06/08/16 22:48 PT/INR, D-dimer PT 12.2 Sec. (12.2-14.9) 06/08/16 22:04 INR 0.91 (0.87-1.13) 06/08/16 22:04 D-Dimer 505.39 ng/mlDDU (0-234) H 06/08/16 23:42 Abnormal lab findings: Abnormal Labs 06/09/16 06/09/16 06/09/16 08:15 08:47 08:47 WBC 13.6 H RDW 17.4 H Lymph % (Auto) Lymph # Seg Neutrophils % Seg Neuts % (Manual) 93.0 H Lymphocytes % (Manual) 4.0 L Seg Neutrophils # Seg Neutrophils # Man 12.6 H Lymphocytes # (Manual) 0.5 L Carbon Dioxide 20 L Glucose 170 H POC Glucose 201 H Albumin 3.8 L 06/09/16 06/09/16 06/10/16 12:01 23:08 05:25 WBC RDW 17.4 H Lymph % (Auto) 5.6 L Lymph # 0.5 L Seg Neutrophils % 87.4 H Seg Neuts % (Manual) Lymphocytes % (Manual) Seg Neutrophils # 8.5 H Seg Neutrophils # Man Lymphocytes # (Manual) Carbon Dioxide Glucose POC Glucose 159 H 219 H Albumin 06/10/16 06/10/16 06/10/16 05:25 08:15 11:37 WBC RDW Lymph % (Auto) Lymph # Seg Neutrophils % Seg Neuts % (Manual) Lymphocytes % (Manual) Seg Neutrophils # Seg Neutrophils # Man Lymphocytes # (Manual) Carbon Dioxide 21 L Glucose 259 H POC Glucose 209 H 204 H Albumin 06/10/16 06/10/16 06/11/16 16:20 22:35 08:39 WBC RDW Lymph % (Auto) Lymph # Seg Neutrophils % Seg Neuts % (Manual) Lymphocytes % (Manual) Seg Neutrophils # Seg Neutrophils # Man Lymphocytes # (Manual) Carbon Dioxide Glucose POC Glucose 197 H 119 H 198 H Albumin 06/11/16 06/11/16 06/11/16 11:56 17:01 22:36 WBC RDW Lymph % (Auto) Lymph # Seg Neutrophils % Seg Neuts % (Manual) Lymphocytes % (Manual) Seg Neutrophils # Seg Neutrophils # Man Lymphocytes # (Manual) Carbon Dioxide Glucose POC Glucose 216 H 135 H 247 H Albumin 06/12/16 06/12/16 06/12/16 08:32 12:18 17:01 WBC RDW Lymph % (Auto) Lymph # Seg Neutrophils % Seg Neuts % (Manual) Lymphocytes % (Manual) Seg Neutrophils # Seg Neutrophils # Man Lymphocytes # (Manual) Carbon Dioxide Glucose POC Glucose 190 H 172 H 234 H Albumin 06/12/16 06/13/16 22:23 07:13 WBC RDW Lymph % (Auto) Lymph # Seg Neutrophils % Seg Neuts % (Manual) Lymphocytes % (Manual) Seg Neutrophils # Seg Neutrophils # Man Lymphocytes # (Manual) Carbon Dioxide Glucose POC Glucose 248 H 180 H Albumin
[2016-06-13] MEDS: ELAVIL PO SCH (22:01)
[2016-06-13] MEDS: SINGULAIR PO SCH (22:02)
[2016-06-14] MEDS: TESSALON PERLES PO SCH (05:52)
[2016-06-14] MEDS: ZOFRAN IV PRN (05:52)
[2016-06-14] MEDS: NORCO 5/325 PO PRN (05:53)
[2016-06-14] MEDS: NOVOLOG SUB-Q SCH (09:08)
[2016-06-14] MEDS: DELTASONE PO SCH (09:09)
[2016-06-14] MEDS: LEVAQUIN PO SCH (09:10)
[2016-06-14] MEDS: NORVASC PO SCH (09:10)
[2016-06-14] MEDS: LOVENOX SUB-Q SCH (09:10)
[2016-06-14] MEDS: ZESTRIL PO SCH (09:11)
[2016-06-14] MEDS: ZOLOFT PO SCH (09:12)
--- NOTE | 2016-06-14 10:30 | Discharge Summary ---
Providers - Providers Date of Admission: 06/09/16 00:07 Date of discharge: 06/14/16 Attending physician: NOMI PARK CONSULTS: Pulmonary Hospitalization Reason for admission: SOB Condition: Stable Pertinent studies: CXT CTA chest CT head Hospital course: Patient is a 45 years old -[place] female with asthma on home oxygen, with multiple admissions for exacerbations, who presented for worsening shortness of breath. She was diagnosed with asthma exacerbation and subsequent acute hypoxic respiratory failure; was started on antibiotics, IV corticosteroids, inhaled bronchodilators, supplemental oxygen and BiPAP; she improved slowly and was weaned off BiPAP and started on corticosteroid taper. She is discharged in stable condition with close PCP follow-up. Also advised to follow with pulmonary for sleep study and need of evaluation for BiPAP. Discharge diagnosis: 1. Acute hypoxic respiratory failure Secondary to asthma exacerbation/pneumonitis 2. Asthma exacerbation Completed antibiotic course, continue corticosteroids taper and inhaled bronchodilators; supplemental oxygen 3. Hypertension BP regimen adjusted 4. Diabetes Accu-Cheks and SSI 5. Depression/anxiety On home meds 6. Obesity/OHS/MAGAN Counseled regarding importance of losing weight and lifestyle changes Advised to follow with pulmonary for outpatient sleep study Disposition: DISCHARGED TO HOME OR SELFCARE Time spent for discharge: 35 min Core Measure Documentation - Palliative Care Palliative Care/ Comfort Measures: Not Applicable - Core Measures Any of the following diagnoses?: none Exam - Physical Exam Narrative exam: Patient seen and examined: - Constitutional Vitals: Temp Pulse Resp BP Pulse Ox 97.7 F 86 20 161/99 99 06/14/16 07:45 06/14/16 09:11 06/14/16 08:00 06/14/16 09:11 06/14/16 00:00 General appearance: Present: no acute distress, obese - Neck Neck: Present: supple, normal ROM. Absent: masses or JVD - Respiratory Respiratory effort: normal Respiratory: bilateral: diminished (coarse breath sounds), negative: rhonchi, wheezing - Cardiovascular Rhythm: regular Heart Sounds: Present: S1 & S2. Absent: systolic murmur - Extremities Extremities: no ischemia - Abdominal General gastrointestinal: Present: soft, non-tender, non-distended, normal bowel sounds - Integumentary Integumentary: Present: warm, dry. Absent: jaundice, rash - Musculoskeletal Musculoskeletal: strength equal bilaterally - Neurologic Neurologic: CNII-XII intact, no focal deficits Plan Activity: advance as tolerated Diet: low cholesterol, low salt Follow up with: DR KINDRA [Other] - 3-5 Days BARRY MOLINA MD [Staff Physician] - 10 Days Prescriptions: Montelukast [Singulair] 10 mg PO QHS #30 tablet Aspirin EC [Aspirin Enteric Coated TAB] 81 mg PO QDAY #30 tablet. Arformoterol Nebu [Brovana Nebu] 15 mcg IH Q12HRT #1 ml predniSONE [Deltasone] 20 mg PO QDAY #20 tablet amLODIPine [Norvasc] 10 mg PO DAILY #30 tablet ALBUTEROL Inhaler [ProAir HFA Inhaler] 2 puff IH QID PRN #1 inhalation PRN Reason: Shortness Of Breath Budesonide [Pulmicort Respules] 0.25 mg IH Q12HRT #1 nebu Rosuvastatin Calcium 20 mg PO QDAY #30 tablet Benzonatate [Tessalon Perles] 100 mg PO Q8HR #20 capsule Albuterol Sulfate [Ventolin HFA] 2 puff INHALATION Q4H PRN #1 [email or web address] PRN Reason: Shortness Of Breath Lisinopril [Zestril TAB] 20 mg PO QDAY #30 tablet
[2016-06-14] MEDS: BROVANA NEBU IH SCH (11:49)
[2016-06-14] MEDS: DUONEB 0.5 MG-3 MG/3 ML SOLN IH SCH (11:49)
[2016-06-14] MEDS: PULMICORT IH SCH (11:52)
[2016-06-14 12:21] VITALS: BP 137/83
--- NOTE | 2016-06-17 09:41 | Query- Pneumonia Documented ---
Dear Date:_06/17/16 [employer]/CDS:Selwyn/Abdias Hernandez Phone#:[phone] Exercise your independent professional judgment when responding to query. Questions asked do not imply a particular answer is desired or expected. We greatly appreciate your clarification on this issue. Clinical Documentation States: 45 Y/O Female admitted on 06/09/16 with Hx. of COPD, CHF, DM, HTN home oxygen dependant presented with Shortness of breath. Patient was most recently hospitalized for the same on 05/26/16. Patient also complains of chest congestion, cough productive of white sputum and diffuse wheezing. Acute hypoxic respiratory failure secondary to Asthma exacerbation/Pneumonitis in discharge summary Clinical Findings Show: Symptoms:SOB, Cough, sputum, wheezing observed in ICU overnight on this admission with previous intubation required. Antibiotics: IV Levofloxacin Chest Imaging: x-ray: Mild central vascular congestion with probable bibasilar atelectasis. Cannot rule out Pneumonitis Please further specify known or suspected Etiology:Acute hypoxic respiratory failure secondary to Asthma exacerbation/Pneumonitis [ ] Aspiration Pneumonia [ ] Gram Negative Pneumonia [ ] Gram Positive Pneumonia [ ] Pseudomonas Pneumonia [ ] MRSA - related Pneumonia [ ] Viral Pneumonia [ ] Candidal Pneumonia [ ] Other: [x ] Unable to determine Present on Admission: [x ] Yes (Y) [ ] Clinically undeterminable (W) [ ] No (N) Please also document response in your Progress Notes and/or Discharge Summary and indicate if the condition was present on admission. MTDD
== END 2016-06-14 12:50 | disposition home or self-care (01) | DRG 193 ==
LOC: ED 21:31 → CC1 06-09 00:07 → 2B-SURG 06-09 21:40
PROVIDERS: ADMIT Hospitalist; ATTEND Internal Medicine
PROC: 4A033R1 Measurement of Arterial Saturation, Peripheral, Percutaneous Approach (ICD-10-PCS; principal; 2016-06-08)
PROC: 5A09457 Assistance with Respiratory Ventilation, 24-96 Consecutive Hours, Continuous Positive Airway Pressure (ICD-10-PCS; 2016-06-08)
DX: J18.9 Pneumonia, unspecified organism (principal); J96.01 Acute respiratory failure with hypoxia; J44.0 Chronic obstructive pulmonary disease with (acute) lower respiratory infection; J45.901 Unspecified asthma with (acute) exacerbation; E66.2 Morbid (severe) obesity with alveolar hypoventilation; I69.354 Hemiplegia and hemiparesis following cerebral infarction affecting left non-dominant side; J44.1 Chronic obstructive pulmonary disease with (acute) exacerbation; K21.9 Gastro-esophageal reflux disease without esophagitis; F41.9 Anxiety disorder, unspecified; I11.0 Hypertensive heart disease with heart failure; I50.9 Heart failure, unspecified; M19.90 Unspecified osteoarthritis, unspecified site; G43.909 Migraine, unspecified, not intractable, without status migrainosus; E78.5 Hyperlipidemia, unspecified; F32.9 Major depressive disorder, single episode, unspecified; E11.42 Type 2 diabetes mellitus with diabetic polyneuropathy; Z71.3 Dietary counseling and surveillance; Z88.0 Allergy status to penicillin; Z91.040 Latex allergy status; Z87.891 Personal history of nicotine dependence; I25.2 Old myocardial infarction; Z98.890 Other specified postprocedural states; Z90.49 Acquired absence of other specified parts of digestive tract; Z90.710 Acquired absence of both cervix and uterus; Z68.34 Body mass index [BMI] 34.0-34.9, adult; Z99.81 Dependence on supplemental oxygen; Z79.84 Long term (current) use of oral hypoglycemic drugs
CPT/HCPCS: 36415; 70450; 71010; 71275; 80048; 80053; 81001; 82140; 82803; 82962; 83690; 83735; 84484; 85007; 85025; 85379; 85610; 87040; 93005; 93010; 94640; 94644; 94660; 94760; 96365; 96366; 96367; 96372; 96375; A9270-GY; J0171; J1650; J1815; J1885; J1956; J2270; J2405; J2765; J2920; J3475; J7030; J7512; Q9967

== ENCOUNTER 2016-09-16 13:48 | Emergency (ER) | payer MEDICARE ==
[2016-09-16] MEDS ORDERED: DILAUDID IV ONE (15:05)
[2016-09-16] MEDS ORDERED: ZOFRAN IV ONE ×2 (15:05→18:11)
[2016-09-16] MEDS ORDERED: BENADRYL ONE (15:17)
[2016-09-16] MEDS ORDERED: BENADRYL IV ONE (15:34)
--- NOTE | 2016-09-16 15:40 | Emergency Department Report ---
HPI - General Chief Complaint: Abdominal Pain Time Seen by Provider: 09/16/16 14:49 - HPI HPI: This is a 45-year-old Afro-[place] female presents to the emergency department by EMS from home with complaint of upper abdominal and left-sided flank pain associated with some nausea and vomiting that has been going on for the past few weeks. The patient recently had endoscopy with [facility] gastroenterology and says she was told that her esophagus does not close the weight supposed to and it causes increased acid reflux and she will require surgery. She also has a history of hiatal hernia, kidney stones, asthma, CHF, COPD, diabetes, [place], hypertension, anxiety. She is previously had a heart attack ablation for WPW, 2, hysterectomy, brain surgery from Chiari malformation. Patient has a primary care doctor, Dr. White, not seen him recently regarding her symptoms. She did not receive anything in route with EMS. She denies any fever, chest pain, dysuria, vaginal discharge. No recent travel or sick contacts at home. 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) Hx Heart Attack/AMI: Yes Hx Congestive Heart Failure: Yes Hx Diabetes: Yes Hx Deep Vein Thrombosis: No Hx Pulmonary Embolism: No Hx GERD: Yes Hx Liver Disease: No Hx Sickle Cell Disease: No Hx Arthritis: Yes Hx Headaches / Migraines: Yes Hx Seizures: No Hx Psychiatric Treatment: Yes (anxiety) Hx Asthma: Yes Hx COPD: Yes Hx Tuberculosis: No Hx Dementia: No Hx HIV: No Additional medical history: hiatal hernia, WPW s/p ablation - Surgical History Past Surgical History?: Yes Hx Coronary Stent: No Hx Open Heart Surgery: No Hx Pacemaker: No Hx Internal Defibrillator: No Hx Cholecystectomy: Yes Hx Appendectomy: No Hx Breast Surgery: No Additional Surgical History: x 2, hysterectomy. Cardiac ablation for WPW. brain surgery 08/2015 - Social History Smoking Status: Never Smoker Substance Use Type: None - Medications Home Medications: Home Medications Medication Instructions Recorded Confirmed Last Taken Type Sertraline [Zoloft] 100 mg PO QDAY 01/01/15 09/16/16 04/09/16 History ALPRAZolam [Xanax TAB] 1 mg PO TID PRN #30 tablet 1009/16/16 03/16/16 Rx Cyclobenzaprine [Flexeril 10 MG 10 mg PO TID PRN 06/09/16 09/16/16 Unknown History TAB] Dexlansoprazole [Dexilant] 60 mg PO QDAY 06/09/16 09/16/16 Unknown History Pantoprazole [Protonix TAB] 40 mg PO QDAY 06/09/16 09/16/16 Unknown History glipiZIDE [glipiZIDE ER] 5 mg PO QAM 06/09/16 09/16/16 Unknown History Albuterol Sulfate [Ventolin HFA] 2 puff INHALATION Q4H PRN #1 06/14/16 09/16/16 Unknown Rx hfa.aer.ad Arformoterol Nebu [Brovana Nebu] 15 mcg IH Q12HRT #1 ml 06/14/16 09/16/16 Unknown Rx Aspirin EC [Aspirin Enteric Coated 81 mg PO QDAY #30 tablet. 06/14/16 Unknown Rx TAB] Budesonide [Pulmicort Respules] 0.25 mg IH Q12HRT #1 nebu 06/14/16 09/16/16 Unknown Rx Lisinopril [Zestril TAB] 20 mg PO QDAY #30 tablet 06/14/16 09/16/16 Unknown Rx Rosuvastatin Calcium 20 mg PO QDAY #30 tablet 06/14/16 09/16/16 Unknown Rx amLODIPine [Norvasc] 10 mg PO DAILY #30 tablet 06/14/16 09/16/16 Unknown Rx Biotin [Jin Biotin] 1 cap PO QDAY 09/16/16 09/16/16 Unknown History Esomeprazole Magnesium [NexIUM] 1 cap PO BIDAC 09/16/16 09/16/16 Unknown History Gabapentin [Neurontin] 1 tab PO TID 09/16/16 09/16/16 Unknown History HYDROcodone/APAP 5-325 [[place] 1 each PO Q6HR PRN #12 tablet 09/16/16 Unknown Rx 5/325] Multivits Min/Iron/FA/Herb#186 1 tab PO QDAY 09/16/16 09/16/16 Unknown History [Hair, Skin and Nails Caplet] Ondansetron [Zofran Odt] 4 mg PO Q8H PRN #10 tab.rapdis 04/26/17 Unknown Rx Oxycodone HCl/Acetaminophen 2 tab PO Q6H PRN 09/16/16 09/16/16 Unknown History [Percocet 10/325 mg] diphenhydrAMINE [Benadryl CAP] 1 cap PO QHS 09/16/16 09/16/16 Unknown History ED Review of Systems ROS: Stated complaint: ABD PAIN/LAURIE Other details as noted in HPI Comment: All other systems reviewed and negative Constitutional: denies: chills, fever Eyes: denies: eye pain, eye discharge, vision change ENT: denies: ear pain, throat pain Respiratory: wheezing. denies: cough Cardiovascular: denies: chest pain, palpitations Gastrointestinal: abdominal pain, nausea, vomiting Genitourinary: denies: urgency, dysuria, discharge Musculoskeletal: denies: back pain, joint swelling, arthralgia Skin: denies: rash, lesions Neurological: denies: headache, weakness, paresthesias Physical Exam - Physical Exam Vital Signs: Vital Signs 09/16/16 09/16/16 09/16/16 14:37 14:41 14:50 Temperature 98.6 F Respiratory 18 Rate Blood Pressure 130/80 O2 Sat by Pulse 98 96 96 Oximetry Physical Exam: GENERAL: The patient is well-developed well-nourished. HEENT: Normocephalic. Atraumatic. Extraocular motions are intact. Patient has moist mucous membranes. Pupils equal reactive to light bilaterally. NECK: Supple. Trachea is midline. CHEST/LUNGS: Clear to auscultation. There is no respiratory distress noted. HEART/CARDIOVASCULAR: Regular. There is no tachycardia. There is no gallop rub or murmur. ABDOMEN: Abdomen is soft. Tenderness to palpation to the epigastric and left upper quadrant of the abdomen. No guarding rebound tenderness. Morbidly obese habitus. Patient has normal bowel sounds. There is no abdominal distention. SKIN: Skin is warm and dry. NEURO: The patient is awake, alert, and oriented. The patient is cooperative. The patient has no focal neurologic deficits. The patient has normal speech. MUSCULOSKELETAL: There is no tenderness or deformity. There is no limitation range of motion. There is no evidence of acute injury. ED Course Vital Signs 09/16/16 09/16/16 09/16/16 14:37 14:41 14:50 Temperature 98.6 F Respiratory 18 Rate Blood Pressure 130/80 O2 Sat by Pulse 98 96 96 Oximetry ED Medical Decision Making - Lab Data Result diagrams: 09/16/16 15:28 09/16/16 15:28 - Radiology Data Radiology results: report reviewed, image reviewed interpreted by me: Chest x-ray did not show any acute process. Heart is normal shape and size. No effusions. No pneumothorax. No signs of pneumonia seen. Abdominal x-ray shows nonobstructive nonspecific bowel gas. CT of the abdomen pelvis with IV contrast shows no acute inflammatory process. Fatty infiltration of liver and hepatomegaly. 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 - Medical Decision Making 45-year-old female presents with complaint of ongoing upper epigastric and left upper quadrant discomfort. She no she has a history of hiatal hernia and some esophageal issue found on recent endoscopy that required some surgery. Patient' s labs were unremarkable. Chest and abdominal x-rays did not show any acute process. CT of the abdomen and pelvis did not show any acute process but showed some fatty infiltration of liver and hepatomegaly. Patient was given some nausea medication and pain medication. Vital signs stable throughout her ED course. She was reevaluated multiple times with multiple hours and has remained stable. His been no further nausea or vomiting at patient is able to display oral rehydration. She'll be discharged home to follow up with her primary care doctor and livestock nutritionist. She'll return to ER with any worsening symptoms or any acute distress. - Differential Diagnosis GERD, pancreatitis, cholecystitis, gastritis Critical Care Time: No Critical care attestation.: If time is entered above; I have spent that time in minutes in the direct care of this critically ill patient, excluding procedure time. ED Disposition Clinical Impression: Hypokalemia Abdominal pain Qualifiers: Abdominal location: generalized Qualified Code(s): R10.84 - Generalized abdominal pain Nausea & vomiting Qualifiers: Vomiting type: unspecified Vomiting Intractability: non-intractable Qualified Code(s): R11.2 - Nausea with vomiting, unspecified Degenerative arthritis of hip Qualifiers: Osteoarthritis type: unspecified Laterality: bilateral Qualified Code(s): M16.0 - Bilateral primary osteoarthritis of hip Disposition: DISCHARGED TO HOME OR SELFCARE Is pt being admited?: No Condition: Stable Instructions: Hypokalemia (ED), Acute Nausea and Vomiting (ED), Abdominal Pain (ED) Additional Instructions: Please follow-up with your primary care doctor and livestock nutritionist. I have given [facility] referral for a local surgeon, Dr. Ignacio, however I'm not sure if he performs the esophageal surgery require. Please contact her livestock nutritionist for other referrals. I referrals well for a local orthopedist, Dr. Cortes, to follow up regarding your chronic bilateral hip degenerative changes at a been found on CT scan over the past 1-2 years. Return to the emergency department with the inability to keep down any fluid, intractable fever, worsening of her symptoms or any acute distress. Prescriptions: HYDROcodone/APAP 5-325 [[place] 5/325] 1 each PO Q6HR PRN #12 tablet PRN Reason: Pain Ondansetron [Zofran Odt] 4 mg PO Q8H PRN #10 tab.rapdis PRN Reason: Nausea Referrals: PRIMARY CARE, [Primary Care Provider] - 3-5 Days FREDERIC CORTES MD [Staff Physician] - 3-5 Days ARETHA IGNACIO MD [Staff Physician] - 3-5 Days Time of Disposition: 19:56
[2016-09-16 15:56] LABS: Basophils % (Auto) 0.6 % (0.0-1.8); Eosinophils % (Auto) 2.5 % (0.0-4.3); Hematocrit 33.7 % (30.3-42.9); Hemoglobin 11.2 gm/dl (10.1-14.3); Mean Corpuscular HGB Conc 33 % (30-34); Mean Corpuscular Hemoglobin 28 pg (28-32); Mean Corpuscular Volume 85 fl (79-97); Platelet Count 381 K/mm3 (140-440); Red Blood Count 3.97 M/mm3 (3.65-5.03); Red Cell Distribution Width 14.9 % (13.2-15.2); White Blood Count 6.4 K/mm3 (4.5-11.0)
[2016-09-16 16:15] LABS: Alanine Aminotransferase 26 units/L (7-56); Albumin 3.7 g/dL (3.9-5); Albumin/Globulin Ratio 1.4 %; Alkaline Phosphatase 102 units/L (35-129); Anion Gap 17 mmol/L; BUN/Creatinine Ratio 8.57; Bilirubin,Total 0.2 mg/dL (0.1-1.2); Blood Urea Nitrogen 6 mg/dL (7-17); Calcium 8.6 mg/dL (8.4-10.2); Carbon Dioxide 25 mmol/L (22-30); Chloride 102.2 mmol/L (98-107); Glucose 117 mg/dL (65-100); Lipase 34 units/L (13-60); Sodium 141 mmol/L (137-145); Total Protein 6.3 g/dL (6.3-8.2)
[2016-09-16 16:22] LABS: Bilirubin,Direct < 0.2 mg/dL (0-0.2)
--- NOTE | 2016-09-16 17:01 | XRay Report ---
Abdominal series: Abdominal pain. There is a thoracic levoscoliosis and a thoracolumbar dextroscoliosis. The lungs are clear and cardiac contours unremarkable. The abdominal gas pattern appears normal. No free air nor fluid layering. The patient has cholecystectomy clips. No abnormal soft tissue calcification. Impression: No acute findings suspected.
[2016-09-16] MEDS ORDERED: K-DUR PO ONE (17:07)
--- NOTE | 2016-09-16 19:03 | Admit Criteria Form ---
Admission Criteria Documentation: ABDOMINAL PAIN Clinical Indications for Admission to Inpatient Care (Place 'X' for any and all applicable criteria): Admission is indicated for ANY ONE of the following(1)(2)(3)(4)(5): [ ]I. Inpatient admission required rather than observation care (Also use Abdominal Pain: Observation Care, as appropriate) because of ANY ONE of the following: [ ]a) Severe pain requiring acute inpatient management [ ]b) Identification of etiology/finding that requires inpatient care (eg, aortic dissection, free air) [ ]c) Absent bowel sounds with complete ileus(6) [ ]d) Suspected toxic megacolon [ ]e) Severe electrolyte abnormalities requiring inpatient care [ ]f) High fever or infection requiring inpatient admission as indicated by ANY ONE of following(7)(8): [ ] i) Appropriate outpatient or observational care antimicrobial treatment unavailable, not effective, or not feasible [ ] ii) Documented bacteremia [ ] iii) Temperature > 104.9 degrees F (oral) [ ] iv) T >103.1 F (oral) or < 96.8 F(rectal) that does not respond to all emergency treatment measures [ ]g) Signs of intestinal obstruction [B] [ ]h) Hemodynamic instability [ ]i) IV fluid to replace significant ongoing losses (greater than 3 L/m2 per day) (12)(13) [ ]j) Percutaneous or open drainage (eg, abscess, biliary tract ) procedures [ ]k) Parenteral nutrition regimen that must be implemented on inpatient basis [ ]l) Other condition,treatment or monitoring requiring inpatient admission. [ ]II. Peritoneal signs present [ ]III. Surgery needed that cannot be performed on an ambulatory basis. [ ]IV. Evaluation requires patient to not eat or drink for extended period ( eg, more than 24 hours). [ ]V. Contraindications and/or Inappropriate clinical situations for Observational Care in patients with abdominal pain, when ANY ONE of the following is required: [ ]a) Thorough evaluation is required to prevent catastrophic events due to delays in diagnosing (e.g.Mesenteric ischemia) 1,3 [ ]b) Patient with severe pathology or with chronic symptoms unlikely to improve in the ED stay (3) [ ]. General contraindications and/or Inappropriate clinical situations for Observational Care in patients with abdominal pain, when ANY ONE of the following is required: [ ]a) Prediction of prolongation of LOS based on ANY ONE of the following may be considered as a contraindication for observational care 2, 3, 4, 5, 6, 7, 8, 9, 10, 11 [ ]i) Age > 65 yrs. [ ]ii) Patient arriving by ambulance [ ]iii) Patient with high acuity [ ]iv) Patient requiring vital sign monitoring [ ]v) Patient on IV medication [ ]b) Systolic blood pressures 180mmHg 3,12 [ ]c) Patient with altered mental status including delirium and other alteration of consciousness, (3) [ ]d) Patient whose discharge disposition will be to a half-way home or rehabilitation home should not be managed in Emergency Department Observation Unit. CMS rule requires 3 days hospital stay before such placement.3,13 [ ]e) Patient with failure to thrive due to broad array of etiologies 3,16,17 [ ]f) Inability to ambulate 3,14 Extended stay beyond goal length of stay may be needed for(2)(3): [ ]a) Persistent abdominal pain with suspected intra-abdominal process [ ]b) Diagnosed condition requiring continued stay (e.g., pancreatitis, complicated diverticulitis) [ ]c) Surgery (e.g., colectomy) The original [employer] [facility] content created by [employer] has been revised. The portions of the content which have been revised are identified through the use of italic text or in bold, and [facility] has neither reviewed nor approved the modified material.All other unmodified content is copyright [employer] [facility]. Please see references footnoted in the original [employer] [facility] edition 2016
--- NOTE | 2016-09-16 19:12 | Cat Scan Report ---
FINAL REPORT PROCEDURE: CT ABDOMEN PELVIS W CON TECHNIQUE: Computerized axial tomography of the abdomen and pelvis was performed after the IV injection of iodinated nonionic contrast. HISTORY: abd pain COMPARISON: 03/07/2016 FINDINGS: Visualized lower thorax: No significant abnormality. Liver: There is diffuse low attenuation of the liver, compatible with fatty infiltration. The liver appears diffusely enlarged, measuring 21 centimeters craniocaudal. Spleen: Normal size and attenuation. Gallbladder and biliary system: There has been cholecystectomy. Pancreas: Normal. Adrenals: Normal. Kidneys: Normal. GI tract: The appendix is visualized and does not appear inflamed. There is no bowel obstruction or acute inflammation. Lymph nodes and mesentery: Normal. Vasculature: Normal. Bladder: Normal. Reproductive organs: There has been hysterectomy. Peritoneum: No free fluid. Musculoskeletal structures: Degenerative disc changes at L4-5. Sclerotic changes are again visualized at the superior aspects of the femoral heads, concerning for osteonecrosis. Other: None. IMPRESSION: No acute inflammatory process is identified. Fatty infiltration of the liver and hepatomegaly. 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
[2016-09-16] MEDS ORDERED: MORPHINE IV ONE (19:31)
[2016-09-16 20:22] VITALS: BP 115/74
== END 2016-09-16 20:49 | disposition home or self-care (01) ==
LOC: ED 13:48
DX: E87.6 Hypokalemia (principal); R10.84 Generalized abdominal pain; R11.2 Nausea with vomiting, unspecified; M16.0 Bilateral primary osteoarthritis of hip; I10 Essential (primary) hypertension; Z86.73 Personal history of transient ischemic attack (TIA), and cerebral infarction without residual deficits; I25.2 Old myocardial infarction; K21.9 Gastro-esophageal reflux disease without esophagitis; M19.90 Unspecified osteoarthritis, unspecified site; F41.9 Anxiety disorder, unspecified; G43.909 Migraine, unspecified, not intractable, without status migrainosus; J45.909 Unspecified asthma, uncomplicated; J44.9 Chronic obstructive pulmonary disease, unspecified; Z90.49 Acquired absence of other specified parts of digestive tract; Z90.710 Acquired absence of both cervix and uterus; Z79.82 Long term (current) use of aspirin; Z88.0 Allergy status to penicillin; Z91.040 Latex allergy status
CPT/HCPCS: 36415; 74022; 74177; 80048; 80074; 83690; 84703; 85025; 96374; 96375; 96376; 99285; J1170; J1200; J2270; J2405; Q9967

== ENCOUNTER 2016-10-07 00:36 | Emergency (ER) | payer MEDICARE ==
[2016-10-07] MEDS ORDERED: ZOFRAN ONE (00:55)
[2016-10-07] MEDS ORDERED: MORPHINE ONE (00:55)
[2016-10-07] MEDS ORDERED: NACL 0.9% 1000 ML 1,000 ML IV ONE (01:49)
--- NOTE | 2016-10-07 01:51 | Emergency Department Report ---
ED Abdominal Pain HPI - General Chief Complaint: Abdominal Pain Stated Complaint: VAGINAL PAIN Time Seen by Provider: 10/07/16 01:47 Source: patient, EMS Mode of arrival: Stretcher Limitations: No Limitations - History of Present Illness Initial Comments: Patient is a 46-year-old female with history of hypertension, diabetes, prior brain surgery approximately one year ago, recent surgery 11 days ago for GERD which appears consistent with a Hector fundoplication but patient was unable to confirm presenting today because of diffuse abdominal pain nausea, vomiting, diarrhea and vaginal discharge. Patient did have unprotected sexual intercourse one month ago. Denies any fevers or chills. Severity scale (0 -10): 10 - Related Data Home Medications Medication Instructions Recorded Confirmed Last Taken Sertraline [Zoloft] 100 mg PO QDAY 01/01/15 09/16/16 04/09/16 Cyclobenzaprine [Flexeril 10 MG 10 mg PO TID PRN 06/09/16 09/16/16 Unknown TAB] Dexlansoprazole [Dexilant] 60 mg PO QDAY 06/09/16 09/16/16 Unknown Pantoprazole [Protonix TAB] 40 mg PO QDAY 06/09/16 09/16/16 Unknown glipiZIDE [glipiZIDE ER] 5 mg PO QAM 06/09/16 09/16/16 Unknown Biotin [Jin Biotin] 1 cap PO QDAY 09/16/16 09/16/16 Unknown Esomeprazole Magnesium [NexIUM] 1 cap PO BIDAC 09/16/16 09/16/16 Unknown Gabapentin [Neurontin] 1 tab PO TID 09/16/16 09/16/16 Unknown Multivits Min/Iron/FA/Herb#186 1 tab PO QDAY 09/16/16 09/16/16 Unknown [Hair, Skin and Nails Caplet] Oxycodone HCl/Acetaminophen 2 tab PO Q6H PRN 09/16/16 09/16/16 Unknown [Percocet 10/325 mg] diphenhydrAMINE [Benadryl CAP] 1 cap PO QHS 09/16/16 09/16/16 Unknown Previous Rx's Medication Instructions Recorded Last Taken Type ALPRAZolam [Xanax TAB] 1 mg PO TID PRN #30 tablet 03/01/16 03/16/16 Rx Albuterol Sulfate [Ventolin HFA] 2 puff INHALATION Q4H PRN #1 06/14/16 Unknown Rx hfa.aer.ad Arformoterol Nebu [Brovana Nebu] 15 mcg IH Q12HRT #1 ml 06/14/16 Unknown Rx Aspirin EC [Aspirin Enteric Coated 81 mg PO QDAY #30 tablet.dr 06/14/16 Unknown Rx TAB] Budesonide [Pulmicort Respules] 0.25 mg IH Q12HRT #1 nebu 06/14/16 Unknown Rx Lisinopril [Zestril TAB] 20 mg PO QDAY #30 tablet 06/14/16 Unknown Rx Rosuvastatin Calcium 20 mg PO QDAY #30 tablet 06/14/16 Unknown Rx amLODIPine [Norvasc] 10 mg PO DAILY #30 tablet 06/14/16 Unknown Rx HYDROcodone/APAP 5-325 [Mize 1 each PO Q6HR PRN #12 tablet 09/16/16 Unknown Rx 5/325] Ondansetron [Zofran Odt] 4 mg PO Q8H PRN #10 tab.rapdis 09/16/16 Unknown Rx metroNIDAZOLE [Flagyl] 500 mg PO Q12HR #14 tab 10/07/16 Unknown Rx Allergies Allergy/AdvReac Type Severity Reaction Status Date / Time latex Allergy Itching Verified 01/01/15 12:49 metoclopramide HCl Allergy Rash Verified 10/07/16 01:19 [From Reglan] penicillin V [Penicillin V] Allergy Rash Verified 01/01/15 12:49 ED Review of Systems ROS: Stated complaint: VAGINAL PAIN Other details as noted in HPI Comment: All other systems reviewed and negative Constitutional: denies: chills, fever Respiratory: denies: cough Cardiovascular: denies: chest pain Gastrointestinal: abdominal pain, nausea, vomiting, diarrhea Genitourinary: denies: dysuria Skin: denies: rash Psychiatric: denies: anxiety ED Past Medical Hx - Past Medical History Hx Hypertension: Yes 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) Hx Heart Attack/AMI: Yes Hx Congestive Heart Failure: Yes Hx Diabetes: Yes Hx Deep Vein Thrombosis: No Hx Pulmonary Embolism: No Hx GERD: Yes Hx Liver Disease: No Hx Sickle Cell Disease: No Hx Arthritis: Yes Hx Headaches / Migraines: Yes Hx Seizures: No Hx Psychiatric Treatment: Yes (anxiety) Hx Asthma: Yes Hx COPD: Yes Hx Tuberculosis: No Hx Dementia: No Hx HIV: No Additional medical history: hiatal hernia, WPW s/p ablation - Surgical History Past Surgical History?: Yes Hx Coronary Stent: No Hx Open Heart Surgery: No Hx Pacemaker: No Hx Internal Defibrillator: No Hx Cholecystectomy: Yes Hx Appendectomy: No Hx Breast Surgery: No Additional Surgical History: x 2, hysterectomy. Cardiac ablation for WPW. brain surgery 08/2015 - Social History Smoking Status: Never Smoker Substance Use Type: Prescribed - Medications Home Medications: Home Medications Medication Instructions Recorded Confirmed Last Taken Type Sertraline [Zoloft] 100 mg PO QDAY 01/01/15 09/16/16 04/09/16 History ALPRAZolam [Xanax TAB] 1 mg PO TID PRN #30 tablet 03/01/16 09/16/16 03/16/16 Rx Cyclobenzaprine [Flexeril 10 MG 10 mg PO TID PRN 06/09/16 09/16/16 Unknown History TAB] Dexlansoprazole [Dexilant] 60 mg PO QDAY 06/09/16 09/16/16 Unknown History Pantoprazole [Protonix TAB] 40 mg PO QDAY 06/09/16 09/16/16 Unknown History glipiZIDE [glipiZIDE ER] 5 mg PO QAM 06/09/16 09/16/16 Unknown History Albuterol Sulfate [Ventolin HFA] 2 puff INHALATION Q4H PRN #1 06/14/16 09/16/16 Unknown Rx hfa.aer.ad Arformoterol Nebu [Brovana Nebu] 15 mcg IH Q12HRT #1 ml 06/14/16 09/16/16 Unknown Rx Aspirin EC [Aspirin Enteric Coated 81 mg PO QDAY #30 tablet.dr 06/14/16 Unknown Rx TAB] Budesonide [Pulmicort Respules] 0.25 mg IH Q12HRT #1 nebu 06/14/16 09/16/16 Unknown Rx Lisinopril [Zestril TAB] 20 mg PO QDAY #30 tablet 06/14/16 09/16/16 Unknown Rx Rosuvastatin Calcium 20 mg PO QDAY #30 tablet 06/14/16 09/16/16 Unknown Rx amLODIPine [Norvasc] 10 mg PO DAILY #30 tablet 06/14/16 09/16/16 Unknown Rx Biotin [Jin Biotin] 1 cap PO QDAY 09/16/16 09/16/16 Unknown History Esomeprazole Magnesium [NexIUM] 1 cap PO BIDAC 09/16/16 09/16/16 Unknown History Gabapentin [Neurontin] 1 tab PO TID 09/16/16 09/16/16 Unknown History HYDROcodone/APAP 5-325 [Mize 1 each PO Q6HR PRN #12 tablet 09/16/16 Unknown Rx 5/325] Multivits Min/Iron/FA/Herb#186 1 tab PO QDAY 09/16/16 09/16/16 Unknown History [Hair, Skin and Nails Caplet] Ondansetron [Zofran Odt] 4 mg PO Q8H PRN #10 tab.rapdis 09/16/16 Unknown Rx Oxycodone HCl/Acetaminophen 2 tab PO Q6H PRN 09/16/16 09/16/16 Unknown History [Percocet 10/325 mg] diphenhydrAMINE [Benadryl CAP] 1 cap PO QHS 09/16/16 09/16/16 Unknown History metroNIDAZOLE [Flagyl] 500 mg PO Q12HR #14 tab 10/07/16 Unknown Rx ED Physical Exam - General Limitations: No Limitations General appearance: alert, in no apparent distress - Head Head exam: Present: atraumatic - Eye Eye exam: Present: normal appearance - ENT ENT exam: Present: normal exam - Neck Neck exam: Present: normal inspection - Respiratory Respiratory exam: Present: normal lung sounds bilaterally. Absent: respiratory distress - Cardiovascular Cardiovascular Exam: Present: regular rate, normal rhythm - GI/Abdominal GI/Abdominal exam: Present: soft. Absent: distended, tenderness - Speculum exam: Present: other (small amount of greenish discharge) Bi-manual exam: Present: normal bi-manual exam. Absent: cervical motion tendernes, uterine enlargement, uterine tenderness - Neurological Exam Neurological exam: Present: alert, oriented X3 - Psychiatric Psychiatric exam: Present: normal affect - Skin Skin exam: Present: intact ED Course Vital Signs 10/07/16 10/07/16 10/07/16 01:19 01:23 08:14 Temperature 98.1 F Pulse Rate 91 H 81 Respiratory 22 22 18 Rate Blood Pressure 138/79 Blood Pressure 138/79 144/93 [Left] O2 Sat by Pulse 100 100 98 Oximetry ED Medical Decision Making - Lab Data Result diagrams: 10/07/16 01:32 10/07/16 01:32 - Medical Decision Making IV, labs, ct due to recent surgery and abd pain wet prep and em/chl also ordered Signed out to Dr. Dias follow-up CT abdomen and pelvis lab results Critical care attestation.: If time is entered above; I have spent that time in minutes in the direct care of this critically ill patient, excluding procedure time. ED Disposition Clinical Impression: Trichomonas infection, Pelvic pain Disposition: DISCHARGED TO HOME OR SELFCARE Is pt being admited?: No Does the pt Need Aspirin: No Condition: Stable Instructions: Trichomoniasis (ED), Abdominal Pain (ED) Additional Instructions: These follow-up with a primary care doctor and TRADE SHOW MANAGER. Return to the emergency department with any worsening of your symptoms or any acute distress. You were prescribed by your previous ER physician, Dr. Vázquez, some narcotic pain medication. You've been prescribed a medication that is sedating. Therefore this medication cannot be mixed with alcohol, or taken prior to driving, working , or being responsible for children. I have prescribed you some Flagyl to treat your Trichomonas infection. This medication has a severe reaction to alcohol and cannot be mixed with any alcohol , not even one sip, while taking this medication and for 2 days after finishing this medication. If you ingest any alcohol you may develop nausea, vomiting, abdominal pain. Prescriptions: metroNIDAZOLE [Flagyl] 500 mg PO Q12HR #14 tab Referrals: [facility] [Outside] - 3-5 Days PRIMARY MD GET [Primary Care Provider] - 3-5 Days MICHAEL DE LA ROSA MD [Staff Physician] - 3-5 Days
[2016-10-07 02:08] LABS: Eosinophils % (Auto) 1.5 % (0.0-4.3); Hematocrit 37.8 % (30.3-42.9); Hemoglobin 12.3 gm/dl (10.1-14.3); Mean Corpuscular HGB Conc 33 % (30-34); Mean Corpuscular Hemoglobin 27 pg (28-32); Mean Corpuscular Volume 84 fl (79-97); Platelet Count 335 K/mm3 (140-440); Red Blood Count 4.48 M/mm3 (3.65-5.03); Red Cell Distribution Width 14.9 % (13.2-15.2); White Blood Count 5.7 K/mm3 (4.5-11.0)
[2016-10-07 02:11] LABS: Alanine Aminotransferase 43 units/L (7-56); Albumin 4.2 g/dL (3.9-5); Albumin/Globulin Ratio 1.8 %; Alkaline Phosphatase 92 units/L (35-129); Anion Gap 23 mmol/L; BUN/Creatinine Ratio 8.57; Blood Urea Nitrogen 6 mg/dL (7-17); Calcium 9.1 mg/dL (8.4-10.2); Carbon Dioxide 21 mmol/L (22-30); Chloride 97.9 mmol/L (98-107); Glucose 126 mg/dL (65-100); Lipase 30 units/L (13-60); Sodium 139 mmol/L (137-145); Total Protein 6.5 g/dL (6.3-8.2)
[2016-10-07] MEDS ORDERED: MORPHINE IV ONE (03:11)
[2016-10-07] MEDS ORDERED: ZOFRAN IV ONE (03:11)
[2016-10-07 03:33] LABS: Bacteria,Urine 1+ /HPF (Negative); Bilirubin,Urine NEG (Negative); Blood,Urine MOD (Negative); Ketones,Urine TR mg/dL (Negative); Leukocyte Esterase,Urine LG (Negative); Nitrite,Urine NEG (Negative); Protein,Urine <15 mg/dL mg/dL (Negative); Urobilinogen,Urine < 2.0 mg/dL (<2.0)
[2016-10-07] MEDS ORDERED: NACL ONE (03:38)
[2016-10-07 04:13] LABS: HIV-1 Antigen p24 Non React (Non React); HIVR-1/2 Ab Non React (Non React)
--- NOTE | 2016-10-07 08:00 | Emergency Department Report ---
Blank Doc - Documentation Documentation: I was asked by the overnight ER physician, Dr. ko, to follow the patient's CT scan results and the wet prep results. My instructions were to discharge patient home if the results were all negative or did not require any further intervention or inpatient admission. CT scan was seen and there does not appear to be any acute intra-abdominal or intrapelvic process that requires any surgical intervention or admission. Wet prep results were positive for Trichomonas. I have added Flagyl to the patient's discharge prescriptions, on top of the pain medication written by Dr. ko, and the patient was given referrals for primary care and JUNIOR PROJECT COORDINATOR..
[2016-10-07 09:55] VITALS: BP 144/93
--- NOTE | 2016-10-07 09:59 | Cat Scan Report ---
FINAL REPORT PROCEDURE: CT ABDOMEN PELVIS W CON TECHNIQUE: Computerized axial tomography of the abdomen and pelvis was performed after the IV injection of iodinated nonionic contrast. HISTORY: abd pain hx of recent esophageal surgery COMPARISON: 09/16/2016 FINDINGS: Visualized lower thorax: No significant abnormality. Liver: There is fatty infiltration of the liver. There is no mass.. Spleen: Normal size and attenuation. Gallbladder and biliary system: There has been a cholecystectomy. The bile ducts are normal in caliber.. Pancreas: Normal. Adrenals: Normal. Kidneys: Normal. GI tract: There is no bowel obstruction, colitis or enteritis. The appendix is normal.. Lymph nodes and mesentery: Normal. Vasculature: Normal. Bladder: Normal. Reproductive organs: There is been a hysterectomy.. Peritoneum: There is no ascites, free air, abscess or adenopathy.. Musculoskeletal structures: No significant abnormality. Other: None. IMPRESSION: There is fatty infiltration of the liver. There is no mass.. There has been a cholecystectomy. The bile ducts are normal in caliber.. There is no bowel obstruction, colitis or enteritis. The appendix is normal.. There is been a hysterectomy.. There is no ascites, free air, abscess or adenopathy..
== END 2016-10-07 08:38 | disposition home or self-care (01) ==
LOC: ED 00:36
DX: R10.84 Generalized abdominal pain (principal); R11.2 Nausea with vomiting, unspecified; R19.7 Diarrhea, unspecified; I10 Essential (primary) hypertension; I25.2 Old myocardial infarction; E11.9 Type 2 diabetes mellitus without complications; K21.9 Gastro-esophageal reflux disease without esophagitis; G43.909 Migraine, unspecified, not intractable, without status migrainosus; J45.909 Unspecified asthma, uncomplicated
CPT/HCPCS: 36415; 74177; 80053; 81001; 83690; 85025; 87210; 87591; 87806; 96361; 96374; 96375; 99284; J2270; J2405; J7030; Q9967

== ENCOUNTER 2017-03-04 07:03 | Emergency (ER) | payer MEDICARE ==
--- NOTE | 2017-03-04 09:20 | Cat Scan Report ---
CT HEAD WITHOUT CONTRAST: HISTORY: Headache. Serial contiguous axial images were obtained through the cranium. Intravenous contrast material was not administered. The ventricles are normal in size and appearance. There is no mass effect or midline shift. No areas of abnormally increased or decreased attenuation are seen. No mass lesion is seen. The mastoid air cells and visualized portions of the sinuses are normal. Occipital craniectomy changes are noted and unremarkable. IMPRESSION: No acute intracranial process. No change since 06/08/16.
[2017-03-04] MEDS ORDERED: NACL 0.9% 1000 ML 1,000 ML IV ONE ×2 (11:02→12:32)
[2017-03-04] MEDS ORDERED: TYLENOL PO ONE (11:02)
[2017-03-04] MEDS ORDERED: REGLAN IV ONE ×2 (11:02→14:27)
[2017-03-04] MEDS ORDERED: BENADRYL IV ONE ×2 (11:02→14:28)
--- NOTE | 2017-03-04 11:10 | Emergency Department Report ---
ED Headache HPI - General Chief Complaint: Headache Stated Complaint: LT ANKLE PAIN Time Seen by Provider: 03/04/17 10:40 Source: patient - History of Present Illness Initial Comments: 46-year-old female with history of Chiari syndrome here with complaint of headache and left ankle pain. Patient states she had a mechanical fall approximately 2 days ago and has had a painful that time. She's had walk with crutches. She states that she felt something pop. In addition she hasn't had headache. She did not strike her head or have any trauma. Denies fevers chills nausea vomiting. Timing/Duration: 24 hours Quality: moderate Head Injury Location: occipital Recent Head Trauma: no recent headache/trauma Associated Symptoms: denies: confusion, fatigue, facial pain, fever/chills, loss of consciousness, nausea/vomiting, nasal congestion Allergies/Adverse Reactions: Allergies latex Allergy (Verified 03/04/17 07:22) Itching penicillin V [Penicillin V] Allergy (Verified 03/04/17 07:22) Rash Home Medications: Ambulatory Orders Sertraline [Zoloft] 100 mg PO QDAY 01/01/15 ALPRAZolam [Xanax TAB] 1 mg PO TID PRN #30 tablet 03/01/16 Cyclobenzaprine [Flexeril 10 MG TAB] 10 mg PO TID PRN 06/09/16 Dexlansoprazole [Dexilant] 60 mg PO QDAY 06/09/16 Pantoprazole [Protonix TAB] 40 mg PO QDAY 06/09/16 glipiZIDE [glipiZIDE ER] 5 mg PO QAM 06/09/16 Albuterol Sulfate [Ventolin HFA] 2 puff INHALATION Q4H PRN #1 hfa.aer.ad Arformoterol Nebu [Brovana Nebu] 15 mcg IH Q12HRT #1 ml 06/14/16 Aspirin EC [Aspirin Enteric Coated TAB] 81 mg PO QDAY #30 tablet. 06/14/16 Budesonide [Pulmicort Respules] 0.25 mg IH Q12HRT #1 nebu 06/14/16 Lisinopril [Zestril TAB] 20 mg PO QDAY #30 tablet 06/14/16 Rosuvastatin Calcium 20 mg PO QDAY #30 tablet 06/14/16 amLODIPine [Norvasc] 10 mg PO DAILY #30 tablet 06/14/16 Biotin [Jin Biotin] 1 cap PO QDAY 09/16/16 Esomeprazole Magnesium [NexIUM] 1 cap PO BIDAC 09/16/16 Gabapentin [Neurontin] 1 tab PO TID 09/16/16 HYDROcodone/APAP 5-325 [Eakly 5/325] 1 each PO Q6HR PRN #12 tablet 09/16/16 Multivit-Min/Iron/Folic/Kiq655 [Hair, Skin and Nails Caplet] 1 tab PO QDAY 09/16 Ondansetron [Zofran Odt] 4 mg PO Q8H PRN #10 tab.rapdis 09/16/16 Oxycodone HCl/Acetaminophen [Percocet 10/325 mg] 2 tab PO Q6H PRN 09/16/16 diphenhydrAMINE [Benadryl CAP] 1 cap PO QHS 09/16/16 metroNIDAZOLE [Flagyl] 500 mg PO Q12HR #14 tab 10/07/16 HYDROcodone/APAP 5-325 [Eakly 5-325 mg TAB] 1 each PO Q6HR PRN #10 tablet Ibuprofen [Motrin] 600 mg PO Q8H PRN #30 tablet 03/04/17 ED Review of Systems ROS: Stated complaint: LT ANKLE PAIN Other details as noted in HPI Comment: All other systems reviewed and negative Constitutional: denies: chills, fever Eyes: denies: eye pain, eye discharge, vision change ENT: denies: ear pain, throat pain Respiratory: denies: cough, shortness of breath, wheezing Cardiovascular: denies: chest pain, palpitations Endocrine: no symptoms reported Gastrointestinal: denies: abdominal pain, nausea, diarrhea Genitourinary: denies: urgency, dysuria, discharge Musculoskeletal: denies: back pain, joint swelling, arthralgia Skin: denies: rash, lesions Neurological: denies: headache, weakness, paresthesias Psychiatric: denies: anxiety, depression Hematological/Lymphatic: denies: easy bleeding, easy bruising 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) Hx Heart Attack/AMI: Yes Hx Congestive Heart Failure: Yes Hx Diabetes: Yes Hx Deep Vein Thrombosis: No Hx Pulmonary Embolism: No Hx GERD: Yes Hx Liver Disease: No Hx Sickle Cell Disease: No Hx Arthritis: Yes Hx Headaches / Migraines: Yes Hx Seizures: No Hx Psychiatric Treatment: Yes (anxiety) Hx Asthma: Yes Hx COPD: Yes Hx Tuberculosis: No Hx Dementia: No Hx HIV: No Additional medical history: hiatal hernia, WPW s/p ablation - Surgical History Past Surgical History?: Yes Hx Coronary Stent: No Hx Open Heart Surgery: No Hx Pacemaker: No Hx Internal Defibrillator: No Hx Cholecystectomy: Yes Hx Appendectomy: No Hx Breast Surgery: No Additional Surgical History: x 2, hysterectomy. Cardiac ablation for WPW. brain surgery 08/2015 - Social History Smoking Status: Never Smoker Substance Use Type: None - Medications Home Medications: Home Medications Medication Instructions Recorded Confirmed Last Taken Type Sertraline [Zoloft] 100 mg PO QDAY 01/01/15 09/16/16 04/09/16 History ALPRAZolam [Xanax TAB] 1 mg PO TID PRN #30 tablet 03/01/16 09/16/16 03/16/16 Rx Cyclobenzaprine [Flexeril 10 MG 10 mg PO TID PRN 06/09/16 09/16/16 Unknown History TAB] Dexlansoprazole [Dexilant] 60 mg PO QDAY 06/09/16 09/16/16 Unknown History Pantoprazole [Protonix TAB] 40 mg PO QDAY 06/09/16 09/16/16 Unknown History glipiZIDE [glipiZIDE ER] 5 mg PO QAM 06/09/16 09/16/16 Unknown History Albuterol Sulfate [Ventolin HFA] 2 puff INHALATION Q4H PRN #1 06/14/16 09/16/16 Unknown Rx hfa.aer.ad Arformoterol Nebu [Brovana Nebu] 15 mcg IH Q12HRT #1 ml 06/14/16 09/16/16 Unknown Rx Aspirin EC [Aspirin Enteric Coated 81 mg PO QDAY #30 tablet.dr 06/14/16 Unknown Rx TAB] Budesonide [Pulmicort Respules] 0.25 mg IH Q12HRT #1 nebu 06/14/16 09/16/16 Unknown Rx Lisinopril [Zestril TAB] 20 mg PO QDAY #30 tablet 06/14/16 09/16/16 Unknown Rx Rosuvastatin Calcium 20 mg PO QDAY #30 tablet 06/14/16 09/16/16 Unknown Rx amLODIPine [Norvasc] 10 mg PO DAILY #30 tablet 06/14/16 09/16/16 Unknown Rx Biotin [Jin Biotin] 1 cap PO QDAY 09/16/16 09/16/16 Unknown History Esomeprazole Magnesium [NexIUM] 1 cap PO BIDAC 09/16/16 09/16/16 Unknown History Gabapentin [Neurontin] 1 tab PO TID 09/16/16 09/16/16 Unknown History HYDROcodone/APAP 5-325 [Eakly 1 each PO Q6HR PRN #12 tablet 09/16/16 Unknown Rx 5/325] Multivit-Min/Iron/Folic/Myh290 1 tab PO QDAY 09/16/16 09/16/16 Unknown History [Hair, Skin and Nails Caplet] Ondansetron [Zofran Odt] 4 mg PO Q8H PRN #10 tab.rapdis 09/16/16 Unknown Rx Oxycodone HCl/Acetaminophen 2 tab PO Q6H PRN 09/16/16 09/16/16 Unknown History [Percocet 10/325 mg] diphenhydrAMINE [Benadryl CAP] 1 cap PO QHS 09/16/16 09/16/16 Unknown History metroNIDAZOLE [Flagyl] 500 mg PO Q12HR #14 tab 10/07/16 Unknown Rx HYDROcodone/APAP 5-325 [Eakly 1 each PO Q6HR PRN #10 tablet 03/04/17 Unknown Rx 5-325 mg TAB] Ibuprofen [Motrin] 600 mg PO Q8H PRN #30 tablet 03/04/17 Unknown Rx ED Physical Exam - General Limitations: Physical Limitation General appearance: alert, in no apparent distress - Head Head exam: Present: atraumatic, normocephalic, other (occipital scar with no evidence of erythema or infection) - Eye Eye exam: Present: normal appearance, PERRL, EOMI. Absent: scleral icterus, conjunctival injection - ENT ENT exam: Present: mucous membranes moist - Neck Neck exam: Absent: tenderness, lymphadenopathy, thyromegaly - Respiratory Respiratory exam: Present: normal lung sounds bilaterally. Absent: respiratory distress, wheezes - Cardiovascular Cardiovascular Exam: Present: regular rate, normal rhythm, normal heart sounds. Absent: systolic murmur, diastolic murmur, rubs, gallop - GI/Abdominal GI/Abdominal exam: Present: soft, normal bowel sounds. Absent: distended, tenderness - Extremities Exam Extremities exam: Present: normal inspection - Back Exam Back exam: Present: normal inspection - Neurological Exam Neurological exam: Present: alert, oriented X3 - Psychiatric Psychiatric exam: Present: normal affect, normal mood - Skin Skin exam: Present: warm, dry, intact, normal color. Absent: rash ED Course Vital Signs 03/04/17 03/04/17 03/04/17 07:22 10:30 10:41 Temperature 98.3 F Pulse Rate 103 H 88 82 Respiratory 16 14 14 Rate Blood Pressure 143/89 101/60 Blood Pressure [Left] O2 Sat by Pulse 97 95 97 Oximetry 03/04/17 03/04/17 03/04/17 10:51 11:01 11:11 Temperature Pulse Rate 93 H 91 H 91 H Respiratory 13 15 22 Rate Blood Pressure 101/60 101/60 101/60 Blood Pressure [Left] O2 Sat by Pulse 98 99 98 Oximetry 03/04/17 03/04/17 03/04/17 11:21 11:24 11:25 Temperature 97.8 F Pulse Rate 92 H 82 Respiratory 12 17 17 Rate Blood Pressure 94/47 Blood Pressure 126/83 [Left] O2 Sat by Pulse 99 97 97 Oximetry 03/04/17 03/04/17 03/04/17 11:30 11:40 11:50 Temperature Pulse Rate 98 H 100 H 99 H Respiratory 15 15 15 Rate Blood Pressure 105/60 100/57 72/35 Blood Pressure [Left] O2 Sat by Pulse 97 98 97 Oximetry 03/04/17 03/04/17 03/04/17 12:01 12:11 12:21 Temperature Pulse Rate 94 H 94 H 92 H Respiratory 14 13 13 Rate Blood Pressure 72/35 64/31 81/45 Blood Pressure [Left] O2 Sat by Pulse 96 97 97 Oximetry 03/04/17 03/04/17 03/04/17 12:31 12:41 12:50 Temperature Pulse Rate 93 H 93 H 89 Respiratory 13 13 13 Rate Blood Pressure 76/42 75/37 65/32 Blood Pressure [Left] O2 Sat by Pulse 96 96 97 Oximetry 03/04/17 03/04/17 03/04/17 13:01 13:11 13:19 Temperature 97.4 F L Pulse Rate 83 88 85 Respiratory 13 17 12 Rate Blood Pressure 140/94 140/94 Blood Pressure 156/108 [Left] O2 Sat by Pulse 96 96 96 Oximetry 03/04/17 03/04/17 03/04/17 13:21 13:30 13:41 Temperature Pulse Rate 89 78 90 Respiratory 16 11 L 14 Rate Blood Pressure 156/108 160/109 160/109 Blood Pressure [Left] O2 Sat by Pulse 98 96 98 Oximetry 03/04/17 03/04/17 03/04/17 13:51 14:00 14:11 Temperature Pulse Rate 91 H 88 85 Respiratory 14 13 13 Rate Blood Pressure 155/100 147/106 147/106 Blood Pressure [Left] O2 Sat by Pulse 98 96 97 Oximetry 03/04/17 03/04/17 03/04/17 14:21 14:30 14:41 Temperature Pulse Rate 87 94 H 94 H Respiratory 15 14 16 Rate Blood Pressure 149/102 158/113 158/113 Blood Pressure [Left] O2 Sat by Pulse 97 97 55 L Oximetry 03/04/17 03/04/17 03/04/17 14:50 15:00 15:10 Temperature Pulse Rate 97 H 97 H 95 H Respiratory 16 12 14 Rate Blood Pressure 159/117 150/109 158/102 Blood Pressure [Left] O2 Sat by Pulse 99 98 98 Oximetry 03/04/17 03/04/17 03/04/17 15:20 15:30 15:40 Temperature Pulse Rate 91 H 100 H 98 H Respiratory 12 12 15 Rate Blood Pressure 153/101 159/109 158/114 Blood Pressure [Left] O2 Sat by Pulse 98 99 97 Oximetry 03/04/17 03/04/17 15:51 16:00 Temperature Pulse Rate 110 H 93 H Respiratory 15 13 Rate Blood Pressure 171/120 153/104 Blood Pressure [Left] O2 Sat by Pulse 95 68 L Oximetry ED Medical Decision Making - Lab Data Result diagrams: 03/04/17 11:10 03/04/17 11:10 Laboratory Results - last 24 hr 03/04/17 03/04/17 03/04/17 11:10 11:10 13:15 WBC 6.5 RBC 4.70 Hgb 13.1 Hct 39.7 MCV 85 MCH 28 MCHC 33 RDW 15.3 H Plt Count 343 Lymph % (Auto) 39.3 H Hardy % (Auto) 7.6 H Eos % (Auto) 3.9 Baso % (Auto) 1.1 Lymph # 2.5 Hardy # 0.5 Eos # 0.3 Baso # 0.1 Seg Neutrophils % 48.1 Seg Neutrophils # 3.1 Sodium 140 Potassium 3.8 Chloride 101.1 Carbon Dioxide 26 Anion Gap 17 BUN 11 Creatinine 0.7 Estimated GFR > 60 BUN/Creatinine Ratio 16 Glucose 105 H Calcium 9.5 Total Bilirubin 0.30 AST 23 ALT 25 Alkaline Phosphatase 115 Total Protein 7.1 Albumin 3.9 Albumin/Globulin Ratio 1.2 Urine Color Red Urine Turbidity Clear Urine pH 7.0 Ur Specific K[place]ron 1.006 Urine Protein <15 mg/dl Urine Glucose (UA) Neg Urine Ketones Neg Urine Blood Neg Urine Nitrite Neg Urine Bilirubin Neg Urine Urobilinogen < 2.0 Ur Leukocyte Esterase Neg Urine WBC (Auto) < 1.0 Urine RBC (Auto) < 1.0 U Epithel Cells (Auto) < 1.0 - Medical Decision Making 46-year-old female here with headache. Known history of Chiari syndrome. Patient had surgery year ago with some improvement in her symptoms. Head CT negative here she has normal labs. Plan to discharge her home with oral pain medication. Second problem is that she has a left ankle fracture. Patient fell approximately 2 days ago. She has a small avulsion fracture in her left fibula. Patient placed in stirrup splint and will be discharged to follow up with orthopedics. Portions of this chart were dictated with dictation software. There may be dictation errors contained within this note. Critical care attestation.: If time is entered above; I have spent that time in minutes in the direct care of this critically ill patient, excluding procedure time. ED Disposition Clinical Impression: Ankle fracture, Headache Disposition: DC-01 TO HOME OR SELFCARE Is pt being admited?: No Condition: Stable Instructions: Ankle Fracture (ED), Acute Headache (ED) Prescriptions: HYDROcodone/APAP 5-325 [Eakly 5-325 mg TAB] 1 each PO Q6HR PRN #10 tablet PRN Reason: Pain Ibuprofen [Motrin] 600 mg PO Q8H PRN #30 tablet PRN Reason: Pain Referrals: MIKIE HOWE MD [Primary Care Provider] - 3-5 Days TRINO HYLTON MD [Staff Physician] - 3-5 Days
[2017-03-04 11:34] LABS: Basophils % (Auto) 1.1 % (0.0-1.8); Eosinophils % (Auto) 3.9 % (0.0-4.3); Hematocrit 39.7 % (30.3-42.9); Hemoglobin 13.1 gm/dl (10.1-14.3); Mean Corpuscular HGB Conc 33 % (30-34); Mean Corpuscular Hemoglobin 28 pg (28-32); Mean Corpuscular Volume 85 fl (79-97); Platelet Count 343 K/mm3 (140-440); Red Cell Distribution Width 15.3 % (13.2-15.2); White Blood Count 6.5 K/mm3 (4.5-11.0)
--- NOTE | 2017-03-04 11:34 | XRay Report ---
LEFT ANKLE, 3 views: History: Pain. There is diffuse soft tissue swelling. A subtle avulsion fracture is suspected from the distal tip of the fibula. The distal tibia and talar dome are intact. The ankle mortise is within normal limits. IMPRESSION: Avulsion fracture, distal fibula.
[2017-03-04 11:51] LABS: Alanine Aminotransferase 25 units/L (7-56); Albumin 3.9 g/dL (3.9-5); Albumin/Globulin Ratio 1.2 %; Alkaline Phosphatase 115 units/L (35-129); Anion Gap 17 mmol/L; BUN/Creatinine Ratio 16; Blood Urea Nitrogen 11 mg/dL (7-17); Calcium 9.5 mg/dL (8.4-10.2); Carbon Dioxide 26 mmol/L (22-30); Chloride 101.1 mmol/L (98-107); Glucose 105 mg/dL (65-100); Potassium 3.8 mmol/L (3.6-5.0); Sodium 140 mmol/L (137-145); Total Protein 7.1 g/dL (6.3-8.2)
[2017-03-04] MEDS ORDERED: TORADOL IV ONE (14:22)
[2017-03-04 15:11] LABS: Bilirubin,Urine NEG (Negative); Blood,Urine NEG (Negative); Ketones,Urine NEG (Negative); Leukocyte Esterase,Urine NEG (Negative); Nitrite,Urine NEG (Negative); Protein,Urine <15 mg/dL mg/dL (Negative); RBC,Urine < 1.0 /HPF (0.0-6.0); Urobilinogen,Urine < 2.0 mg/dL (<2.0); WBC,Urine < 1.0 /HPF (0.0-6.0)
[2017-03-04] MEDS ORDERED: DECADRON IV ONE (16:03)
[2017-03-04] MEDS ORDERED: MORPHINE IV ONE ×2 (16:03→17:54)
[2017-03-04 17:54] VITALS: BP 171/110
== END 2017-03-04 18:20 | disposition home or self-care (01) ==
LOC: ED 07:03
DX: S82.832A Other fracture of upper and lower end of left fibula, initial encounter for closed fracture (principal); W18.30XA Fall on same level, unspecified, initial encounter; Y93.9 Activity, unspecified; Y92.9 Unspecified place or not applicable; Y99.9 Unspecified external cause status
CPT/HCPCS: 29515; 36415; 70450; 73610; 80053; 81001; 85025; 93005; 93010; 96361; 96374; 96375; 96376; 99285; J1100; J1200; J1885; J2270; J2765; J7030